=== PATIENT | male | born 1975 | race Caucasian/White ===

== ENCOUNTER 2016-06-21 15:41 | Emergency (ER) | payer MEDICARE, OTHER ==
[2016-06-21 15:45] VITALS: BP 128/77
[2016-06-21] MEDS ORDERED: DEXAMETHASONE 10 MG/ML VIAL ONE (15:58)
--- NOTE | 2016-06-21 15:59 | ED Physician Documentation ---
PD HPI BACK PAIN - Stated complaint Stated Complaint: BACK PX - Chief complaint Chief Complaint: Back Pain - History obtained from History obtained from: Patient - History of Present Illness Timing - onset: How many days ago (3) Timing - duration: Days (3) Timing - details: Gradual onset, Still present Location: Lower, Left Quality: Pain, Spasm, Sharp, Similar to prior episodes Associated symptoms: No: Fever, Weakness, Numbness, Incontinent of urine, Unable to urinate, Hematuria, Incontinent of stool Improves with: Rest, Ice, Position, Meds Worsened by: Movement, Lifting Contributing factors: Other (intimate with .) Similar symptoms before: Diagnosis (sciatica) Recently seen: Other (The patient has been in pain management and he is currently not in pain management.) - Additional information Additional information: 41 y/o male with history of sciatica has developed pain in the left distribution after a night of intimacy with his . He has been in pain management previously with his back and he has had epidural steroid injections. He relates he has been out of pain management for 3 weeks without pain medications. Review of Systems Constitutional: denies: Fever, Chills Eyes: denies: Decreased vision Ears: denies: Ear pain Nose: denies: Congestion Throat: denies: Sore throat Cardiac: denies: Chest pain / pressure Respiratory: denies: Dyspnea GI: denies: Abdominal Pain, Nausea, Vomiting, Constipation, Diarrhea : denies: Dysuria, Frequency Skin: denies: Rash Musculoskeletal: reports: Back pain. denies: Neck pain PD PAST MEDICAL HISTORY - Past Medical History Past Medical History: Yes Cardiovascular: Hypertension Respiratory: None Neuro: None Endocrine/Autoimmune: None GI: GI bleed, Ulcers : None, Kidney stones HEENT: None Psych: Post traumatic stress disorder Musculoskeletal: Osteoarthritis, Chronic back pain Derm: None - Past Surgical History Past Surgical History: Yes Ortho: Arthroscopic surgery, Other - Present Medications Home Medications: Ambulatory Orders Medication Instructions Recorded Confirmed Telmisartan/Hydrochlorothiazid 1 each PO DAILY 10/02/13 01/02/15 [Micardis Hct 80-12.5 mg Tablet] Bupropion HCl [Wellbutrin] 150 mg ORAL DAILY 01/17/14 01/02/15 Oxycodone HCl/Acetaminophen 1 each PO Q6H PRN #25 tablet 07/11/14 01/02/15 [Percocet 7.5-325 mg Tablet] Acetaminophen [Tylenol] 650 mg PO Q6H PRN #30 tab 01/02/15 Baclofen 10 mg PO BID 01/02/15 01/02/15 Gabapentin 300 mg PO DAILY 01/02/15 01/02/15 Promethazine Supp [Phenergan Supp] 25 mg [place] Q6H PRN #12 supp 01/02/15 cloNIDine [Catapres] 0.1 mg PO Q6H PRN #12 tablet 01/02/15 FLUoxetine [PROzac] 40 mg PO DAILY 06/21/16 06/21/16 Methocarbamol [Robaxin] 500 - 1,000 mg PO Q6H PRN #20 06/21/16 tablet Pregabalin [Lyrica] 75 mg PO QID 06/21/16 06/21/16 oxyCODONE/ACET 5/325 [Percocet 5 1 - 2 each PO Q4-6H PRN #20 tablet 06/21/16 mg/325 mg] - Allergies Allergies/Adverse Reactions: Allergies Allergy/AdvReac Type Severity Reaction Status Date / Time strawberry [[place]] Allergy Intermediate unk Verified 01/02/15 11:52 NSAIDS (Non-Steroidal AdvReac Unknown Verified 06/21/16 15:44 Anti-Inflamma - Social History Does the pt smoke?: No Smoking Status: Never smoker Does the pt drink ETOH?: No Does the pt have substance abuse?: No - Immunizations Immunizations are current?: Yes - POLST Patient has POLST: No PD ED PE NORMAL - Vitals Vital signs reviewed: Yes (normal ) - General General: No acute distress, Well developed/nourished - HEENT HEENT: Atraumatic, PERRL, EOMI - Respiratory Respiratory: No respiratory distress - Back Back: No CVA TTP, No spinal TTP, Other (There is some mild paraspinous muscle tenderness on the left lower and this extends into the sciatic notch. ) - Derm Derm: Normal color, Warm and dry, No rash - Extremities Extremities: No deformity, No edema - Neuro Neuro: Alert and oriented X 3, No motor deficit, No sensory deficit, Normal speech - Psych Psych: Normal mood, Normal affect Results - Vitals Vitals: Vital Signs - 24 hr 06/21/16 15:42 Temperature 36.2 C L Heart Rate 78 Respiratory 14 Rate Blood Pressure 128/77 O2 Saturation 96 Oxygen O2 Source Room air PD MEDICAL DECISION MAKING - ED course Complexity details: reviewed results, re-evaluated patient, considered differential, d/w patient ED course: 41 y/o male with acute sciatica is given decadron here in the ED and we will manage his acute pain. Departure - Departure Disposition: 01 Home, Self Care Clinical Impression: Sciatica Qualifiers: Laterality: left Qualified Code(s): M54.32 - Sciatica, left side Condition: Stable Instructions: ED Sciatica Follow-Up: Natanael Jerry ARNP [Primary Care Provider] - Prescriptions: oxyCODONE/ACET 5/325 [Percocet 5 mg/325 mg] 1 - 2 each PO Q4-6H PRN #20 tablet PRN Reason: Pain Methocarbamol [Robaxin] 500 - 1,000 mg PO Q6H PRN #20 tablet PRN Reason: Spasms
[2016-06-21] MEDS: DEXAMETHASONE 10 MG/ML VIAL PO STA (16:00)
== END 2016-06-21 16:17 | disposition home or self-care (01) ==
LOC: ED 15:41
DX: M54.32 Sciatica, left side (principal); I10 Essential (primary) hypertension; M19.90 Unspecified osteoarthritis, unspecified site; G89.29 Other chronic pain; Z87.19 Personal history of other diseases of the digestive system; Z87.11 Personal history of peptic ulcer disease; Z87.442 Personal history of urinary calculi
CPT/HCPCS: 99283

== ENCOUNTER 2016-07-09 | Emergency (ER) | payer MEDICARE, OTHER | END 2016-07-09 13:21 | disposition home or self-care (01) ==

== ENCOUNTER 2016-10-28 10:00 | Outpatient (CLI) | payer MEDICARE, OTHER ==
[2016-10-28 12:55] LABS: BASOPHILS # (AUTO) 0.1 10^3/uL (0.0-0.1); BASOPHILS % (AUTO) 0.6 %; EOSINOPHILS # (AUTO) 0.1 10^3/uL (0.0-0.7); EOSINOPHILS % (AUTO) 1.4 %; HCT - HEMATOCRIT 42.6 % (42.0-52.0); HGB - HEMOGLOBIN 14.1 g/dL (14.0-18.0); LYMPHOCYTES # (AUTO) 1.8 10^3/uL (1.5-3.5); LYMPHOCYTES % (AUTO) 17.6 %; MEAN CORPUSCULAR HEMOGLOBIN 28.2 pg (27.0-31.0); MEAN CORPUSCULAR VOLUME 85.4 fL (80.0-94.0); MEAN PLATELET VOLUME 9.9 fL (7.4-11.4); MONOCYTES # (AUTO) 0.6 10^3/uL (0.0-1.0); MONOCYTES % (AUTO) 5.8 %; NEUTROPHILS # (AUTO) 7.6 10^3/uL (1.5-6.6); NEUTROPHILS % (AUTO) 74.6 %; RED BLOOD COUNT 4.99 10^6/uL (4.70-6.10); RED CELL DISTRIBUTION WIDTH 14.4 % (12.0-15.0); UNCORRECTED WHITE BLOOD COUNT 10.2 x10^3/uL; WHITE BLOOD COUNT 10.2 x10^3/uL (4.8-10.8)
[2016-10-28 13:15] LABS: ALBUMIN/GLOBULIN RATIO 1.8 (1.0-2.2); BILIRUBIN,TOTAL 0.6 mg/dL (0.2-1.0); CALCIUM 9.4 mg/dL (8.5-10.3); CREATININE 1.1 mg/dL (0.6-1.2); POTASSIUM 4.1 mmol/L (3.5-5.0); TOTAL PROTEIN 7.1 g/dL (6.7-8.2)
== END 2016-10-28 10:01 | disposition home or self-care (01) ==
LOC: LAB.WCP 10:00
PROVIDERS: ATTEND Physician Assistant Medical
DX: Z51.81 Encounter for therapeutic drug level monitoring (principal); Z71.9 Counseling, unspecified; Z79.899 Other long term (current) drug therapy
CPT/HCPCS: 36415; 80053; 85025; 87640

== ENCOUNTER 2016-11-03 14:59 | Emergency (ER) | payer MEDICARE, OTHER ==
[2016-11-03] MEDS ORDERED: DEXAMETHASONE 10 MG/ML VIAL PO STA (16:42)
[2016-11-03] MEDS ORDERED: KETOROLAC 60 MG/2 ML VIAL IM STA (16:42)
--- NOTE | 2016-11-03 16:44 | ED Physician Documentation ---
PD HPI BACK PAIN - Stated complaint Stated Complaint: SCIATICA - Chief complaint Chief Complaint: Back Pain - History obtained from History obtained from: Patient - History of Present Illness Timing - onset: Today Timing - duration: Hours Timing - details: Abrupt onset, Still present Location: Lower, Right Quality: Pain, Spasm, Sharp, Similar to prior episodes Associated symptoms: No: Fever, Weakness, Numbness, Incontinent of urine, Unable to urinate, Hematuria, Incontinent of stool Improves with: Rest, Position, Meds Worsened by: Movement Contributing factors: Other (The patient had an active 3 days and then woke up today with severe pain on the right) Similar symptoms before: Diagnosis (sciatica) Recently seen: Not recently seen - Additional information Additional information: 41 y/o male on pain management for chronic back pain has developed acute sciatica on the right side after several active days. Review of Systems Constitutional: denies: Fever Eyes: denies: Decreased vision Ears: denies: Ear pain Nose: denies: Congestion Respiratory: denies: Cough GI: denies: Abdominal Pain, Nausea, Vomiting, Constipation, Diarrhea : denies: Dysuria, Frequency Musculoskeletal: reports: Back pain, Extremity pain Neurologic: denies: Generalized weakness, Focal weakness, Numbness PD PAST MEDICAL HISTORY - Past Medical History Cardiovascular: Hypertension Respiratory: None Neuro: None Endocrine/Autoimmune: None GI: GI bleed, Ulcers : None, Kidney stones HEENT: None Psych: Post traumatic stress disorder Musculoskeletal: Osteoarthritis, Chronic back pain Derm: None - Past Surgical History Past Surgical History: Yes Ortho: Arthroscopic surgery, Other - Present Medications Home Medications: Ambulatory Orders Medication Instructions Recorded Confirmed Methocarbamol [Robaxin] 500 - 1,000 mg PO Q6H PRN #20 06/21/16 11/03/16 tablet Hydroxyzine Pamoate 1 - 2 tab PO Q6H PRN #20 capsule 07/09/16 11/03/16 DULoxetine [Cymbalta] 40 mg PO DAILY 11/03/16 11/03/16 Lamotrigine [Lamictal] 200 mg PO DAILY 11/03/16 11/03/16 Telmisartan/Hydrochlorothiazid 1 tab PO DAILY 11/03/16 11/03/16 [Micardis Hct 80-25 mg Tablet] oxyCODONE ER [OxyCONTIN] 10 mg PO DAILY 11/03/16 11/03/16 - Allergies Allergies/Adverse Reactions: Allergies Allergy/AdvReac Type Severity Reaction Status Date / Time strawberry [[place]] Allergy Intermediate unk Verified 11/03/16 16:09 NSAIDS (Non-Steroidal AdvReac Unknown Verified 11/03/16 16:09 Anti-Inflamma - Social History Does the pt smoke?: No Smoking Status: Never smoker Does the pt drink ETOH?: No Does the pt have substance abuse?: No - Immunizations Immunizations are current?: Yes - POLST Patient has POLST: No PD ED PE NORMAL - Vitals Vital signs reviewed: Yes (tachy and hypertensive) - General General: Alert and oriented X 3, Well developed/nourished, Other (patient is splinted in a chair favoring his right side and he appears uncomfortable. ) - HEENT HEENT: Atraumatic, PERRL - Respiratory Respiratory: No respiratory distress - Back Back: No CVA TTP, Other (there is marked paraspinous muscle tenderness to the right lower lumbar area with radiatio into the buttocks. ) - Derm Derm: Normal color, Warm and dry, No rash - Extremities Extremities: No deformity, No edema - Neuro Neuro: Alert and oriented X 3, No motor deficit, No sensory deficit, Normal speech - Psych Psych: Normal mood, Normal affect Results - Vitals Vitals: Vital Signs - 24 hr 11/03/16 15:01 Temperature 36.5 C Heart Rate 105 H Respiratory 20 Rate Blood Pressure 141/94 H O2 Saturation 99 Oxygen O2 Source Room air PD MEDICAL DECISION MAKING - ED course Complexity details: reviewed old records, considered differential, d/w patient ED course: 41 y/o male with acute right sided sciatica appears uncomfortable. He is treated in the ED with toradal and decadron and he has some pain medication to take at home tonight but he is only allow one 10mg pill per night and he will talk to his prescriber tomorrow about additional doses as needed. He looks like he could use some pain medication. Departure - Departure Disposition: 01 Home, Self Care Clinical Impression: Sciatica Qualifiers: Laterality: right Qualified Code(s): M54.31 - Sciatica, right side Condition: Stable Instructions: ED Sciatica Follow-Up: Madeline Hull PA-C [Primary Care Provider] -
[2016-11-03] MEDS ORDERED: KETOROLAC 60 MG/2 ML VIAL ONE (17:00)
[2016-11-03] MEDS ORDERED: DEXAMETHASONE 10 MG/ML VIAL ONE (17:00)
[2016-11-03 17:18] VITALS: BP 128/93
== END 2016-11-03 17:15 | disposition home or self-care (01) ==
LOC: ED 14:59
DX: M54.31 Sciatica, right side (principal); Z79.891 Long term (current) use of opiate analgesic; F43.10 Post-traumatic stress disorder, unspecified
CPT/HCPCS: 96372; 99283

== ENCOUNTER 2016-11-19 10:54 | Outpatient (CLI) | payer MEDICARE, OTHER | END 2016-11-19 10:55 | disposition home or self-care (01) | LOC: DI 10:54 | PROVIDERS: ATTEND Physician Assistant Medical | DX: R00.0 Tachycardia, unspecified (principal); I51.7 Cardiomegaly | CPT/HCPCS: 93306 ==

== ENCOUNTER 2017-01-05 11:52 | Emergency (ER) | payer MEDICARE, OTHER ==
[2017-01-05 11:59] VITALS: BP 139/95
--- NOTE | 2017-01-05 12:34 | ED Physician Documentation ---
PD HPI BACK PAIN - Stated complaint Stated Complaint: BACK PX - Chief complaint Chief Complaint: Back Pain - History obtained from History obtained from: Patient - History of Present Illness Timing - onset: Other (He has chronic low back pain with recent MRI showing L5- S1 central disc herniation with effacement of both neuroforaminal openings on either side and he has pain that radiates down the left leg without saddle anesthesia. He admits he recently was discharged from his doctor's practice, this is corroborated by the [employer] showing his last prescription filled was early November.) Review of Systems Constitutional: denies: Fever, Chills Cardiac: denies: Chest pain / pressure, Palpitations Respiratory: denies: Dyspnea, Cough GI: denies: Abdominal Pain PD PAST MEDICAL HISTORY - Past Medical History Cardiovascular: Hypertension Respiratory: None Neuro: None Endocrine/Autoimmune: None GI: GI bleed, Ulcers : None, Kidney stones HEENT: None Psych: Post traumatic stress disorder Musculoskeletal: Osteoarthritis, Chronic back pain Derm: None - Past Surgical History Past Surgical History: Yes Ortho: Arthroscopic surgery, Other - Present Medications Home Medications: Ambulatory Orders Medication Instructions Recorded Confirmed Methocarbamol [Robaxin] 750 mg PO Q6H PRN #20 tablet 01/05/17 Oxycodone HCl/Acetaminophen 1 - 2 tab PO Q4H PRN #15 tablet 01/05/17 [Percocet 5-325 mg Tablet] predniSONE [Deltasone] 20 mg PO [id number] #21 tab 01/05/17 - Allergies Allergies/Adverse Reactions: Allergies Allergy/AdvReac Type Severity Reaction Status Date / Time strawberry [[place]] Allergy Intermediate unk Verified 11/03/16 16:09 hydrocodone Allergy Unknown Verified 01/05/17 11:59 NSAIDS (Non-Steroidal AdvReac Unknown Verified 11/03/16 16:09 Anti-Inflamma - Social History Does the pt smoke?: No Smoking Status: Never smoker Does the pt drink ETOH?: No Does the pt have substance abuse?: No - Immunizations Immunizations are current?: Yes - POLST Patient has POLST: No PD ED PE NORMAL - Vitals Vital signs reviewed: Yes - General General: Alert and oriented X 3, No acute distress - Back Back: No CVA TTP, No spinal TTP - Extremities Extremities: Other (Mildly diminished sensation on the left side focused over the anterior left thigh but symmetric patellar and Babinski reflexes and normal strength throughout.) - Neuro Neuro: Alert and oriented X 3, Normal speech - Psych Psych: Normal mood, Normal affect Results - Vitals Vitals: Vital Signs - 24 hr 01/05/17 11:57 Temperature 35.9 C L Heart Rate 105 H Respiratory 18 Rate Blood Pressure 139/95 H O2 Saturation 100 Oxygen O2 Source Room air PD MEDICAL DECISION MAKING - ED course ED course: This patient has seemingly uncomplicated musculoskeletal back pain. The patient has no "red flags." Specifically denies IV drug use, fevers, incontinence, saddle anesthesia. Spinal epidural abscess was considered, given that the patient has no fever, is not diabetic, has no spinal tenderness, does not use IV drugs, and has no bilateral neurologic symptoms, the diagnosis of spinal epidural abscess is considered exceedingly unlikely. The [place] prescription monitoring program was queried with regard to this patient. No concerning findings were found. Departure - Departure Disposition: Home, Self Care Clinical Impression: Back pain Qualifiers: Back pain location: low back pain Chronicity: chronic Back pain laterality: bilateral Sciatica presence: with sciatica Sciatica laterality: sciatica of left side Qualified Code(s): M54.42 - Lumbago with sciatica, left side Condition: Good Record reviewed to determine appropriate education?: Yes Instructions: ED Chronic Pain Management, ED Neck Back Pain General Prescriptions: predniSONE [Deltasone] 20 mg PO [id number] #21 tab Oxycodone HCl/Acetaminophen [Percocet 5-325 mg Tablet] 1 - 2 tab PO Q4H PRN #15 tablet PRN Reason: Pain Methocarbamol [Robaxin] 750 mg PO Q6H PRN #20 tablet PRN Reason: Spasms Comments: Call your doctor to arrange a follow-up appointment, make the next available appointment. In the interim, return anytime if worse or if new symptoms develop. Do not drink or drive while taking narcotic pain medication. Note that many narcotic pain relievers also contain Tylenol/acetaminophen. Please ensure that your total dose of acetaminophen from all sources does not exceed 3 g (3000 mg) per day. You may get constipated while on this medication. Take a stool softener such as Colace twice a day while you are on it. Also add an [id number] laxative such as senna or MiraLAX on any day that you do not have a bowel movement. If you received a narcotic pain medication or sedative while in the emergency department, do not drive for the next 24 hours. Your blood pressure was elevated today on check into the emergency department. This does not mean that you have hypertension, it is a common phenomenon to come to the emergency department and have elevated blood pressure. I recommend that she see her primary care physician within the week to have it rechecked when you are feeling better.
== END 2017-01-05 12:39 | disposition home or self-care (01) ==
LOC: ED 11:52
DX: M54.42 Lumbago with sciatica, left side (principal); G89.29 Other chronic pain
CPT/HCPCS: 99282; 99283

== ENCOUNTER 2017-01-07 15:04 | Emergency (ER) | payer MEDICARE, OTHER ==
[2017-01-07 15:20] VITALS: BP 133/85
[2017-01-07] MEDS ORDERED: LIDOCAINE PATCH 5% TOP STA (15:34)
[2017-01-07] MEDS ORDERED: DEXAMETHASONE 10 MG/ML VIAL PO STA (15:34)
[2017-01-07] MEDS ORDERED: DEXAMETHASONE 10 MG/ML VIAL ONE (15:42)
[2017-01-07] MEDS ORDERED: LIDOCAINE PATCH 5% TOP ONE (15:42)
--- NOTE | 2017-01-07 15:52 | ED Physician Documentation ---
PD HPI BACK PAIN - Stated complaint Stated Complaint: BACK PX - Chief complaint Chief Complaint: Back Pain - Additional information Additional information: hx from pt 41 male chronic back issues recent MRI showed L5S1 disk dehydration and herniation with nerve impingement his PMD is on leave until 01/15 seen in ER few days ago and rx percocet, prednisone and mm relaxant pain is still severe with rad down lateral left leg and numbness to left lateral foot no saddle anesthesia no urinary or fecal incont soem rad to lateral left side but no abd pain no fever, denies IVDA dental work etc Review of Systems Constitutional: denies: Fever Cardiac: denies: Chest pain / pressure GI: denies: Abdominal Pain : denies: Incontinent Musculoskeletal: reports: Back pain Neurologic: reports: Focal weakness (lateral toes L foot), Numbness (lateral toes L foot) PD PAST MEDICAL HISTORY - Past Medical History Past Medical History: Yes Cardiovascular: Hypertension Respiratory: None Neuro: None Endocrine/Autoimmune: None GI: GI bleed, Ulcers : None, Kidney stones HEENT: None Psych: Post traumatic stress disorder Musculoskeletal: Osteoarthritis, Chronic back pain Derm: None - Past Surgical History Past Surgical History: Yes Ortho: Arthroscopic surgery, Other - Present Medications Home Medications: Ambulatory Orders Medication Instructions Recorded Confirmed Methocarbamol [Robaxin] 750 mg PO Q6H PRN #20 tablet 01/05/17 Oxycodone HCl/Acetaminophen 1 - 2 tab PO Q4H PRN #15 tablet 01/05/17 [Percocet 5-325 mg Tablet] predniSONE [Deltasone] 20 mg PO [id number] #21 tab 01/05/17 Lidocaine Patch 5% [Lidoderm Patch] 1 each TOP DAILY PRN #10 patch 01/07/17 - Allergies Allergies/Adverse Reactions: Allergies Allergy/AdvReac Type Severity Reaction Status Date / Time strawberry [[place]] Allergy Intermediate unk Verified 11/03/16 16:09 hydrocodone Allergy Unknown Verified 01/05/17 11:59 NSAIDS (Non-Steroidal AdvReac Unknown Verified 11/03/16 16:09 Anti-Inflamma - Social History Does the pt smoke?: No Smoking Status: Never smoker Does the pt drink ETOH?: No Does the pt have substance abuse?: No - Immunizations Immunizations are current?: Yes - POLST Patient has POLST: No PD ED PE NORMAL - Vitals Vital signs reviewed: Yes - Cardiac Cardiac: RRR - Respiratory Respiratory: No respiratory distress - Abdomen Abdomen: Soft, Non tender, Other (no pulsatile mass) - Back Back: Other (left low lumbar ST TTP, no focal spine rendess swelling TTP) - Neuro Neuro: Other (hip flex knee ect foot dorsi plantar and great toe ext 5/5, 4th 5th toe ext slightly weak, no ankle clonus, + SLR (leg hurt even without), diff to postiron pt and relax enough to test patellar DTR) Results - Vitals Vitals: Vital Signs - 24 hr 01/07/17 15:05 Temperature 36.5 C Heart Rate 83 Respiratory 14 Rate Blood Pressure 133/85 H O2 Saturation 100 Oxygen O2 Source Room air PD MEDICAL DECISION MAKING - ED course ED course: will add dose of decdron and try lido patches, pt still has some percocet left Departure - Departure Disposition: 01 Home, Self Care Clinical Impression: Back pain Qualifiers: Back pain location: low back pain Chronicity: acute Back pain laterality: left Sciatica presence: with sciatica Sciatica laterality: sciatica of left side Qualified Code(s): M54.42 - Lumbago with sciatica, left side Condition: Good Instructions: ED Sciatica, ED Back Care Tips Follow-Up: Madeline Hull PA-C [Primary Care Provider] - Prescriptions: Lidocaine Patch 5% [Lidoderm Patch] 1 each TOP DAILY PRN #10 patch PRN Reason: Pain Comments: Try the lidocaine patches Continue your other medications as previously prescribed. Follow up with your PMD Jan 15 as scheduled And please have your PMD recheck your blood pressure - it was high today Forms: Activity restrictions
== END 2017-01-07 16:12 | disposition home or self-care (01) ==
LOC: ED 15:04
DX: M54.42 Lumbago with sciatica, left side (principal); I10 Essential (primary) hypertension; G89.29 Other chronic pain
CPT/HCPCS: 99283; A9270

== ENCOUNTER 2017-01-15 15:26 | Outpatient (CLI) | payer MEDICARE, OTHER | END 2017-01-15 15:27 | LOC: LAB.R 15:26 | PROVIDERS: ATTEND Physician Assistant Medical | DX: Z01.818 Encounter for other preprocedural examination (principal); M16.0 Bilateral primary osteoarthritis of hip | CPT/HCPCS: 87640 ==

== ENCOUNTER 2017-03-24 15:02 | Outpatient (CLI) | payer MEDICARE, OTHER ==
[2017-03-24 12:31] LABS: BASOPHILS # (AUTO) 0.1 10^3/uL (0.0-0.1); BASOPHILS % (AUTO) 0.8 %; EOSINOPHILS # (AUTO) 0.1 10^3/uL (0.0-0.7); EOSINOPHILS % (AUTO) 1.9 %; HCT - HEMATOCRIT 43.7 % (42.0-52.0); HGB - HEMOGLOBIN 14.6 g/dL (14.0-18.0); LYMPHOCYTES # (AUTO) 2.2 10^3/uL (1.5-3.5); LYMPHOCYTES % (AUTO) 30.6 %; MEAN CORPUSCULAR HEMOGLOBIN 28.2 pg (27.0-31.0); MEAN CORPUSCULAR HGB CONC 33.4 g/dL (32.0-36.0); MEAN CORPUSCULAR VOLUME 84.3 fL (80.0-94.0); MEAN PLATELET VOLUME 9.5 fL (7.4-11.4); MONOCYTES # (AUTO) 0.5 10^3/uL (0.0-1.0); MONOCYTES % (AUTO) 7.6 %; NEUTROPHILS # (AUTO) 4.2 10^3/uL (1.5-6.6); NEUTROPHILS % (AUTO) 59.1 %; RED BLOOD COUNT 5.18 10^6/uL (4.70-6.10); RED CELL DISTRIBUTION WIDTH 14.3 % (12.0-15.0); UNCORRECTED WHITE BLOOD COUNT 7.1 x10^3/uL; WHITE BLOOD COUNT 7.1 x10^3/uL (4.8-10.8)
[2017-03-24 12:39] LABS: ALBUMIN/GLOBULIN RATIO 1.7 (1.0-2.2); BILIRUBIN,TOTAL 0.6 mg/dL (0.2-1.0); CALCIUM 9.1 mg/dL (8.5-10.3); POTASSIUM 3.8 mmol/L (3.5-5.0); TOTAL PROTEIN 7.2 g/dL (6.7-8.2)
== END 2017-03-24 15:03 | disposition home or self-care (01) ==
LOC: LAB.WCP 15:02
PROVIDERS: ATTEND Physician Assistant Medical
DX: R10.13 Epigastric pain (principal); R10.11 Right upper quadrant pain; Z51.81 Encounter for therapeutic drug level monitoring; Z79.899 Other long term (current) drug therapy
CPT/HCPCS: 36415; 80053; 82150; 83690; 85025

== ENCOUNTER 2017-07-09 23:31 | Outpatient (CLI) | payer MEDICARE, OTHER ==
[2017-07-09 19:12] LABS: BASOPHILS # (AUTO) 0.1 10^3/uL (0.0-0.1); BASOPHILS % (AUTO) 1.2 %; EOSINOPHILS # (AUTO) 0.2 10^3/uL (0.0-0.7); EOSINOPHILS % (AUTO) 2.2 %; HGB - HEMOGLOBIN 15.1 g/dL (14.0-18.0); LYMPHOCYTES # (AUTO) 1.7 10^3/uL (1.5-3.5); LYMPHOCYTES % (AUTO) 25.4 %; MEAN CORPUSCULAR HEMOGLOBIN 28.8 pg (27.0-31.0); MEAN CORPUSCULAR VOLUME 87.4 fL (80.0-94.0); MONOCYTES # (AUTO) 0.6 10^3/uL (0.0-1.0); MONOCYTES % (AUTO) 8.7 %; NEUTROPHILS # (AUTO) 4.2 10^3/uL (1.5-6.6); NEUTROPHILS % (AUTO) 62.5 %; PLT - PLATELET COUNT 261 10^3/uL (130-450); RED BLOOD COUNT 5.24 10^6/uL (4.70-6.10); RED CELL DISTRIBUTION WIDTH 13.6 % (12.0-15.0); WHITE BLOOD COUNT 6.8 x10^3/uL (4.8-10.8)
[2017-07-09 19:44] LABS: ALBUMIN 4.7 g/dL (3.2-5.5); ALBUMIN/GLOBULIN RATIO 1.8 (1.0-2.2); BILIRUBIN,TOTAL 0.5 mg/dL (0.2-1.0); CRP - C-REACTIVE PROTEIN 1.1 mg/dL (0-1.0); TOTAL PROTEIN 7.3 g/dL (6.7-8.2)
[2017-07-10 10:54] LABS: HEPATITIS C ANTIBODY NON-REACTIVE (NON-REACTIVE)
[2017-07-10 11:27] LABS: HEPATITIS B SURFACE ANTIGEN NON-REACTIVE (NON-REACTIVE)
[2017-07-10 11:28] LABS: HEPATITIS B CORE AB TOTAL NON-REACTIVE (NON-REACTIVE)
[2017-07-14 13:10] LABS: LAMOTRIGINE <0.5 mcg/mL (4.0-18.0)
== END 2017-07-09 23:32 | disposition home or self-care (01) ==
LOC: LAB.WCP 23:31
PROVIDERS: ATTEND Physician Assistant Medical
DX: M25.50 Pain in unspecified joint (principal); F31.9 Bipolar disorder, unspecified; Z51.81 Encounter for therapeutic drug level monitoring; Z79.899 Other long term (current) drug therapy; Z71.9 Counseling, unspecified
CPT/HCPCS: 36415; 80053; 80175; 84443; 85025; 85651; 86140; 86317; 86704; 86803; 87340

== ENCOUNTER 2017-07-22 07:50 | Outpatient (CLI) | payer MEDICARE, OTHER | END 2017-07-22 07:51 | disposition home or self-care (01) | LOC: LAB.WCP 07:50 | PROVIDERS: ATTEND Physician Assistant Medical | DX: M25.50 Pain in unspecified joint (principal); R53.83 Other fatigue; Z51.81 Encounter for therapeutic drug level monitoring; Z79.899 Other long term (current) drug therapy | CPT/HCPCS: 36415; 82306; 84403; 84443 ==

== ENCOUNTER 2017-07-23 07:41 | Outpatient (CLI) | payer MEDICARE, OTHER | END 2017-07-23 07:42 | disposition home or self-care (01) | LOC: LAB.WCP 07:41 | PROVIDERS: ATTEND Physician Assistant Medical | DX: E29.1 Testicular hypofunction (principal); R53.83 Other fatigue | CPT/HCPCS: 36415; 84403 ==

== ENCOUNTER 2017-07-24 08:00 | Outpatient (CLI) | payer MEDICARE, OTHER ==
[2017-07-24 13:43] LABS: HGB - HEMOGLOBIN 15.1 g/dL (14.0-18.0); MEAN CORPUSCULAR HEMOGLOBIN 28.6 pg (27.0-31.0); MEAN CORPUSCULAR HGB CONC 33.6 g/dL (32.0-36.0); MEAN CORPUSCULAR VOLUME 85.2 fL (80.0-94.0); MEAN PLATELET VOLUME 9.4 fL (7.4-11.4); RED BLOOD COUNT 5.28 10^6/uL (4.70-6.10); RED CELL DISTRIBUTION WIDTH 13.7 % (12.0-15.0); WHITE BLOOD COUNT 6.2 x10^3/uL (4.8-10.8)
[2017-07-24 14:14] LABS: CRP - C-REACTIVE PROTEIN < 1.0 mg/dL (0-1.0); URIC ACID 6.2 mg/dL (2.6-7.2)
[2017-07-24 14:23] LABS: RHEUMATOID FACTOR NEGATIVE (Negative)
[2017-07-26 19:01] LABS: 18 KD (IGG) BAND NON-REACTIVE; 23 KD (IGG) BAND NON-REACTIVE; 23 KD (IGM) BLOT NON-REACTIVE; 28 KD (IGG) BAND NON-REACTIVE; 30 KD (IGG) BAND NON-REACTIVE; 39 KD (IGG) BAND NON-REACTIVE; 39 KD (IGM) BLOT NON-REACTIVE; 41 KD (IGG) BAND REACTIVE; 41 KD (IGM) BLOT REACTIVE; 45 KD (IGG) BAND NON-REACTIVE; 58 KD (IGG) BAND NON-REACTIVE; 66 KD (IGG) BAND NON-REACTIVE; 93 KD (IGG) BAND NON-REACTIVE
[2017-07-27 16:27] LABS: ANA SCREEN NEGATIVE (NEGATIVE)
[2017-07-28 21:43] LABS: CYCLIC CITRULL PEPTIDE CCP IGG <16 UNITS
== END 2017-07-24 08:01 | disposition home or self-care (01) ==
LOC: LAB.WCP 08:00
PROVIDERS: ATTEND Physician Assistant Medical
DX: M25.50 Pain in unspecified joint (principal)
CPT/HCPCS: 36415; 84550; 85651; 86038; 86140; 86200; 86430; 86617

== ENCOUNTER 2017-07-28 10:40 | Emergency (ER) | payer MEDICARE, OTHER ==
[2017-07-28] MEDS ORDERED: DEXAMETHASONE 10 MG/ML VIAL PO STA (14:05)
--- NOTE | 2017-07-28 14:08 | ED Physician Documentation ---
PD HPI BACK PAIN - Stated complaint Stated Complaint: BACK PX - Chief complaint Chief Complaint: Back Pain - History obtained from History obtained from: Patient - History of Present Illness Timing - onset: How many days ago (2) Timing - duration: Days (2) Timing - details: Gradual onset, Still present Location: Lower, Left Quality: Pain, Spasm, Sharp, Similar to prior episodes Associated symptoms: Numbness. No: Fever, Weakness, Incontinent of urine, Unable to urinate, Hematuria, Incontinent of stool Improves with: Rest, Ice, Position, Meds Worsened by: Movement Contributing factors: Other (lifted a patient off of the ground) Similar symptoms before: Diagnosis (sciatica) Recently seen: Not recently seen - Additional information Additional information: 42-year-old male with lumbar disc disease bent over to help someone up off of the ground 2 days ago and at that time he had slight pain in his back he was able to nurse that through and over the last 2 days his pain has become intolerable and he has pain radiating down the left leg. He has had this happen to him a number of times he took some methocarbamol did not help much and he is here now for treatment. He has responded previously to dexamethasone and he has had improvement with epidural steroid injection. He is not currently on pain management. Review of Systems Constitutional: denies: Fever Eyes: denies: Decreased vision Ears: denies: Ear pain Nose: denies: Congestion Throat: denies: Sore throat Respiratory: denies: Cough GI: denies: Vomiting : denies: Dysuria, Frequency Skin: denies: Rash Musculoskeletal: reports: Back pain, Extremity pain Neurologic: reports: Numbness. denies: Generalized weakness, Focal weakness PD PAST MEDICAL HISTORY - Past Medical History Past Medical History: Yes Cardiovascular: Hypertension Respiratory: None Neuro: None Endocrine/Autoimmune: None GI: GI bleed, Ulcers : None, Kidney stones HEENT: None Psych: Post traumatic stress disorder Musculoskeletal: Osteoarthritis, Fibromyalgia, Chronic back pain Derm: None - Past Surgical History Past Surgical History: Yes Ortho: Arthroscopic surgery, Other - Present Medications Home Medications: Ambulatory Orders Medication Instructions Recorded Confirmed Methocarbamol [Robaxin] 750 mg PO Q6H PRN #20 tablet 01/05/17 Oxycodone HCl/Acetaminophen 1 - 2 tab PO Q4H PRN #15 tablet 01/05/17 [Percocet 5-325 mg Tablet] predniSONE [Deltasone] 20 mg PO [id number] #21 tab 01/05/17 Lidocaine Patch 5% [Lidoderm Patch] 1 each TOP DAILY PRN #10 patch 01/07/17 Cyclobenzaprine [Flexeril] 10 mg PO TID PRN #20 tablet 07/28/17 oxyCODONE/ACET 5/325 [Percocet 5 1 each PO Q4-6H #12 tablet 07/28/17 mg/325 mg] - Allergies Allergies/Adverse Reactions: Allergies Allergy/AdvReac Type Severity Reaction Status Date / Time strawberry [[place]] Allergy Intermediate unk Verified 11/03/16 16:09 hydrocodone Allergy Unknown Verified 01/05/17 11:59 NSAIDS (Non-Steroidal AdvReac Unknown Verified 11/03/16 16:09 Anti-Inflamma - Social History Does the pt smoke?: No Smoking Status: Never smoker Does the pt drink ETOH?: No Does the pt have substance abuse?: No - Immunizations Immunizations are current?: Yes - POLST Patient has POLST: No PD ED PE NORMAL - Vitals Vital signs reviewed: Yes (hypertensive and tachycardic) - General General: Alert and oriented X 3, Well developed/nourished, Other (Patient appears to be in pain with ip technology transactions attorney tone and flattened affect) - HEENT HEENT: Atraumatic, PERRL - Respiratory Respiratory: No respiratory distress - Back Back: No CVA TTP, No spinal TTP, Other (There is some tenderness to the paraspinous muscles especially in the left lower lumbar area that extends into the sciatic notch.) - Derm Derm: Normal color, Warm and dry, No rash - Extremities Extremities: No deformity, No edema - Neuro Neuro: Alert and oriented X 3, No motor deficit, Normal speech Eye Opening: Spontaneous Motor: Obeys Commands Verbal: Oriented GCS Score: 15 - Psych Psych: Normal mood Results - Vitals Vitals: Vital Signs - 24 hr 07/28/17 07/28/17 07/28/17 10:49 12:55 14:13 Temperature 36.7 C 36.8 C Heart Rate 108 H 100 83 Respiratory 18 20 18 Rate Blood Pressure 150/100 H 124/87 H 138/94 H O2 Saturation 98 98 100 Oxygen O2 Source Room air PD MEDICAL DECISION MAKING - ED course Complexity details: considered differential, d/w patient ED course: 42-year-old male with an exacerbation of sciatica is given dexamethasone 10 mg orally here in the emergency department and we will provide him a small amount of oxycodone. Departure - Departure Disposition: 01 Home, Self Care Clinical Impression: Sciatic pain Qualifiers: Laterality: left Qualified Code(s): M54.32 - Sciatica, left side Condition: Stable Instructions: ED Sciatica Follow-Up: Madeline Hull PA-C [Primary Care Provider] - Prescriptions: Cyclobenzaprine [Flexeril] 10 mg PO TID PRN #20 tablet PRN Reason: Spasms oxyCODONE/ACET 5/325 [Percocet 5 mg/325 mg] 1 each PO Q4-6H #12 tablet Discharge Date/Time: 07/28/17 14:17
[2017-07-28 14:14] VITALS: BP 138/94
[2017-07-28] MEDS ORDERED: CHERRY SYRUP 10 ML UDC PO ONE (14:18)
== END 2017-07-28 14:17 | disposition home or self-care (01) ==
LOC: ED 10:40
DX: M54.32 Sciatica, left side (principal); M51.36 Other intervertebral disc degeneration, lumbar region; I10 Essential (primary) hypertension
CPT/HCPCS: 99283; A9270

== ENCOUNTER 2017-08-03 10:00 | Outpatient (CLI) | payer MEDICARE, OTHER ==
[2017-08-03 14:26] LABS: PROLACTIN 4.01 ng/mL
[2017-08-03 14:50] LABS: LUTEINIZING HORMONE 3.68 mIU/mL
== END 2017-08-03 10:01 | disposition home or self-care (01) ==
LOC: LAB.WCP 10:00
PROVIDERS: ATTEND Physician Assistant Medical
DX: E29.1 Testicular hypofunction (principal); Z12.5 Encounter for screening for malignant neoplasm of prostate; Z79.899 Other long term (current) drug therapy
CPT/HCPCS: 36415; 83002; 84146; G0103; 84153

== ENCOUNTER 2017-08-14 11:19 | Emergency (ER) | payer MEDICARE, OTHER ==
[2017-08-14 11:26] VITALS: BP 149/92
== END 2017-08-14 12:40 | disposition left against medical advice (07) ==
LOC: ED 11:19
DX: Z53.21 Procedure and treatment not carried out due to patient leaving prior to being seen by health care provider (principal)

== ENCOUNTER 2017-09-10 18:57 | Emergency (ER) | payer MEDICARE, OTHER ==
[2017-09-10 19:08] VITALS: BP 147/100
--- NOTE | 2017-09-10 19:36 | ED Physician Documentation ---
History of Present Illness - Stated complaint Stated Complaint: LEG PX - Chief complaint Chief Complaint: Ext Problem - History obtained from History obtained from: Patient - History of Present Illness Timing: Other (He has been having ongoing problems with his back, had an MRI a few weeks ago showing a left L5/S1 nerve root problem without evidence of central stenosis or spinal cord issue. Couple of days ago he had increasing pain of the left sciatic area and buttock radiating down in the left leg with numbness along the outer side of the left leg but no saddle anesthesia or incontinence or fevers. He has been taking Tylenol 3 as well as a gabapentin and a benzodiazepine without relief.) Review of Systems Constitutional: denies: Fever, Chills GI: denies: Abdominal Pain, Nausea, Vomiting : reports: Reviewed and negative PD PAST MEDICAL HISTORY - Past Medical History Past Medical History: Yes Cardiovascular: Hypertension Respiratory: None Neuro: None Endocrine/Autoimmune: None GI: GI bleed, Ulcers : None, Kidney stones HEENT: None Psych: Post traumatic stress disorder Musculoskeletal: Osteoarthritis, Fibromyalgia, Chronic back pain Derm: None - Past Surgical History Past Surgical History: Yes Ortho: Arthroscopic surgery, Other - Present Medications Home Medications: Ambulatory Orders Medication Instructions Recorded Confirmed Cyclobenzaprine [Flexeril] 10 mg PO TID PRN #20 tablet 09/10/17 Lidocaine Patch 5% [Lidoderm Patch] 1 each TOP DAILY #10 patch 09/10/17 Oxycodone HCl/Acetaminophen 1 - 2 tab PO Q4H PRN #15 tablet 09/10/17 [Percocet 5-325 mg Tablet] - Allergies Allergies/Adverse Reactions: Allergies Allergy/AdvReac Type Severity Reaction Status Date / Time strawberry [[place]] Allergy Intermediate unk Verified 09/10/17 19:25 hydrocodone Allergy Unknown Verified 09/10/17 19:25 NSAIDS (Non-Steroidal AdvReac Unknown Verified 09/10/17 19:25 Anti-Inflamma - Social History Does the pt smoke?: No Smoking Status: Never smoker Does the pt drink ETOH?: No Does the pt have substance abuse?: No - Immunizations Immunizations are current?: Yes - POLST Patient has POLST: No PD ED PE NORMAL - Vitals Vital signs reviewed: Yes - General General: Alert and oriented X 3, Other (He looks like he is in pain, he is standing with his weight centered on his right leg and the left leg slightly flexed at the hip knee and ankle. I am unable to check reflexes but his legs are nontender, he does have diminished sensation over the outer left thigh. There is no spinal cord tenderness.) - Neuro Neuro: Alert and oriented X 3, Normal speech - Psych Psych: Normal mood, Normal affect Results - Vitals Vitals: Vital Signs - 24 hr 09/10/17 19:05 Temperature 36.1 C L Heart Rate 101 H Respiratory 19 Rate Blood Pressure 147/100 H O2 Saturation 98 Oxygen O2 Source Room air PD MEDICAL DECISION MAKING - ED course ED course: He looks like he is in severe pain and I offered an injection, however he is allergic to NSAIDs and he does not have a ride so we opted for oral medications only. Departure - Departure Disposition: 01 Home, Self Care Clinical Impression: Sciatica Qualifiers: Laterality: left Qualified Code(s): M54.32 - Sciatica, left side Condition: Good Record reviewed to determine appropriate education?: Yes Instructions: ED Sciatica Prescriptions: Cyclobenzaprine [Flexeril] 10 mg PO TID PRN #20 tablet PRN Reason: Pain Lidocaine Patch 5% [Lidoderm Patch] 1 each TOP DAILY #10 patch Oxycodone HCl/Acetaminophen [Percocet 5-325 mg Tablet] 1 - 2 tab PO Q4H PRN #15 tablet PRN Reason: Pain Comments: Call your doctor to arrange a follow-up appointment, make the next available appointment. In the interim, return anytime if worse or if new symptoms develop. Your blood pressure was elevated today on check into the emergency department. This does not mean that you have hypertension, it is a common phenomenon to come to the emergency department and have elevated blood pressure. I recommend that you see your primary care physician within the week to have it rechecked when you are feeling better. Do not drink or drive while taking narcotic pain medication. Note that many narcotic pain relievers also contain Tylenol/acetaminophen. Please ensure that your total dose of acetaminophen from all sources does not exceed 3 g (3000 mg) per day. You may get constipated while on this medication. Take a stool softener such as Colace twice a day while you are on it. Also add an [id number] laxative such as senna or MiraLAX on any day that you do not have a bowel movement. If you received a narcotic pain medication or sedative while in the emergency department, do not drive for the next 24 hours.
== END 2017-09-10 19:44 | disposition home or self-care (01) ==
LOC: ED 18:57
DX: M54.32 Sciatica, left side (principal); I10 Essential (primary) hypertension
CPT/HCPCS: 99283

== ENCOUNTER 2017-10-08 08:00 | Outpatient (CLI) | payer MEDICARE, OTHER | END 2017-10-08 08:01 | disposition home or self-care (01) | LOC: LAB.WCP 08:00 | PROVIDERS: ATTEND Physician Assistant Medical | DX: M54.5 Low back pain (principal) | CPT/HCPCS: 80307; 81599; G0480; 80361; 80365 ==

== ENCOUNTER 2017-12-13 11:08 | Emergency (ER) | payer MEDICARE, OTHER ==
--- NOTE | 2017-12-13 11:33 | ED Physician Documentation ---
PD HPI HEENT - Stated complaint Stated Complaint: SINUS PX - Chief complaint Chief Complaint: Heent - History obtained from History obtained from: Patient - History of Present Illness Timing - onset: How many weeks ago (3) Timing - duration: Weeks Timing - details: Gradual onset, Still present (worse the past 3-4 days with sinus pain, pressure, green discharge, and upper teeth pain on right.) Associated symptoms: Congestion, Rhinorrhea, Facial swelling. No: Fever Similar symptoms before: Diagnosis (sinus infection) Recently seen: Not recently seen Review of Systems Constitutional: reports: Chills. denies: Fever Nose: reports: Rhinorrhea / runny nose, Congestion, Sinus pressure / pain ( right maxillary) Throat: reports: Dental pain / toothache (right upper today) Respiratory: denies: Dyspnea, Cough GI: denies: Nausea, Vomiting, Diarrhea Skin: denies: Rash, Lesions PD PAST MEDICAL HISTORY - Past Medical History Cardiovascular: Hypertension Respiratory: None Endocrine/Autoimmune: None GI: GI bleed, Ulcers : None, Kidney stones HEENT: None Psych: Post traumatic stress disorder Musculoskeletal: Osteoarthritis, Fibromyalgia, Chronic back pain Derm: None - Past Surgical History Past Surgical History: Yes Ortho: Arthroscopic surgery, Other - Present Medications Home Medications: Ambulatory Orders Medication Instructions Recorded Confirmed Acetaminophen/Cod 300/30 [Tylenol 1 each PO ONCE 12/13/17 12/13/17 #3] Cetirizine [ZyrTEC] 10 mg PO DAILY #20 tablet 12/13/17 Dexamethasone [Decadron] 4 mg PO DAILY #5 tablet 12/13/17 Doxycycline Monohydrate 100 mg PO BID #14 tablet 12/13/17 Garlise 12/13/17 Telmisartan/Hydrochlorothiazid 12/13/17 [Micardis Hct 80-25 mg Tablet] Testoterone Injections 12/13/17 Tramadol HCl 50 mg PO Q6H PRN #20 tablet 12/13/17 - Allergies Allergies/Adverse Reactions: Allergies Allergy/AdvReac Type Severity Reaction Status Date / Time strawberry [[place]] Allergy Intermediate unk Verified 12/13/17 11:13 hydrocodone Allergy Unknown Verified 12/13/17 11:13 NSAIDS (Non-Steroidal AdvReac Unknown Verified 12/13/17 11:13 Anti-Inflamma - Social History Does the pt smoke?: No Smoking Status: Never smoker Does the pt drink ETOH?: No Does the pt have substance abuse?: No - Immunizations Immunizations are current?: Yes - POLST Patient has POLST: No PD ED PE NORMAL - Vitals Vital signs reviewed: Yes - General General: Alert and oriented X 3, No acute distress, Well developed/nourished - HEENT HEENT: Ears normal, Moist mucous membranes, Pharynx benign, Other (right sinus tender to percussion. ) - Neck Neck: Supple, no meningeal sign, No adenopathy - Cardiac Cardiac: RRR, No murmur - Respiratory Respiratory: Clear bilaterally Results - Vitals Vitals: Oxygen O2 Source Room air PD MEDICAL DECISION MAKING - ED course Complexity details: considered differential, d/w patient - Sepsis Event Vital Signs: Oxygen O2 Source Room air Departure - Departure Disposition: 01 Home, Self Care Clinical Impression: Acute sinusitis Qualifiers: Sinusitis location: maxillary Recurrence: non-recurrent Qualified Code(s): J01.00 - Acute maxillary sinusitis, unspecified Condition: Stable Record reviewed to determine appropriate education?: Yes Instructions: ED Sinusitis Abx Tx Follow-Up: FARZAD DAMON [Primary Care Provider] - Prescriptions: Cetirizine [ZyrTEC] 10 mg PO DAILY #20 tablet Dexamethasone [Decadron] 4 mg PO DAILY #5 tablet Doxycycline Monohydrate 100 mg PO BID #14 tablet Tramadol HCl 50 mg PO Q6H PRN #20 tablet PRN Reason: Pain Comments: You can continue the Flonase spray. Also consider some saline nasal spray several times a day to help clear the nasal passageway and promote sinus drainage. Use Decadron steroid anti-inflammatory daily for 5 days and doxycycline antibiotic twice daily for a week. Also add antihistamine cetirizine for 1 or 2 weeks. Use Tylenol or tramadol if needed for pains. Recheck if not improving over the next several days. Discharge Date/Time: 12/13/17 12:26
[2017-12-13] MEDS ORDERED: DEXAMETHASONE 10 MG/ML VIAL PO STA (12:00)
[2017-12-13] MEDS ORDERED: ACETAMINOPHEN 325 MG TABLET PO STA (12:00)
[2017-12-13] MEDS ORDERED: DOXYCYCLINE 100 MG TABLET PO STA (12:00)
[2017-12-13] MEDS ORDERED: CHERRY SYRUP 10 ML UDC PO ONE (12:18)
[2017-12-13 12:26] VITALS: BP 132/88
== END 2017-12-13 12:26 | disposition home or self-care (01) ==
LOC: ED 11:08
DX: J01.00 Acute maxillary sinusitis, unspecified (principal)
CPT/HCPCS: 99283; A9270

== ENCOUNTER 2018-04-02 09:51 | Emergency (ER) | payer MEDICARE, OTHER ==
[2018-04-02 10:05] VITALS: BP 146/97
== END 2018-04-02 10:20 | disposition left against medical advice (07) ==
LOC: ED 09:51
DX: Z53.21 Procedure and treatment not carried out due to patient leaving prior to being seen by health care provider (principal)

== ENCOUNTER 2018-04-21 10:31 | Emergency (ER) | payer MEDICARE, OTHER ==
[2018-04-21 10:42] VITALS: BP 135/94
[2018-04-21] MEDS ORDERED: DEXAMETHASONE 10 MG/ML VIAL PO STA (11:33)
--- NOTE | 2018-04-21 11:36 | ED Physician Documentation ---
PD HPI BACK PAIN - Stated complaint Stated Complaint: LEFT LEG PX - Chief complaint Chief Complaint: Back Pain - History obtained from History obtained from: Patient - History of Present Illness Timing - onset: How many weeks ago (2) Timing - duration: Weeks (2) Timing - details: Gradual onset, Still present, Waxing and waning Location: Lower, Left Quality: Pain, Spasm, Sharp, Similar to prior episodes Associated symptoms: Numbness. 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 He states that he was at work he lifted a heavy lid and this seemed to get his back irritated and then he did some more lifting and twisting at work and over the past 3 days his pain is been especially bad. He did take some leftover Flexeril over the week weekend but his pain is not resolving. He has some radiation of the pain into his left leg on the lateral aspect of the thigh and calf. Review of Systems Constitutional: denies: Fever, Chills Ears: denies: Ear pain Nose: denies: Congestion Throat: denies: Sore throat Cardiac: denies: Chest pain / pressure, Palpitations Respiratory: denies: Dyspnea, Cough GI: denies: Abdominal Pain, Nausea, Vomiting, Diarrhea : denies: Dysuria, Frequency PD PAST MEDICAL HISTORY - Past Medical History Cardiovascular: Hypertension Respiratory: None Endocrine/Autoimmune: None GI: GI bleed, Ulcers : Kidney stones HEENT: None Psych: Post traumatic stress disorder Musculoskeletal: Osteoarthritis, Fibromyalgia, Chronic back pain Derm: None - Past Surgical History Past Surgical History: Yes Ortho: Arthroscopic surgery, Other - Present Medications Home Medications: Ambulatory Orders Medication Instructions Recorded Confirmed Acetaminophen/Cod 300/30 [Tylenol 1 each PO ONCE 12/13/17 04/21/18 #3] Garlise 12/13/17 Telmisartan/Hydrochlorothiazid 1 tab ORAL DAILY 12/13/17 [Micardis Hct 80-25 mg Tablet] Testoterone Injections 0.5 ml ORAL 12/13/17 Cyclobenzaprine [Flexeril] 10 mg PO TID PRN #20 tablet 04/21/18 Gabapentin [Gralise] 04/21/18 Oxycodone HCl/Acetaminophen 1 - 2 each PO Q6H PRN #14 tablet 04/21/18 [Percocet 5-325 mg Tablet] - Allergies Allergies/Adverse Reactions: Allergies Allergy/AdvReac Type Severity Reaction Status Date / Time strawberry [[place]] Allergy Intermediate unk Verified 04/21/18 10:43 hydrocodone Allergy Unknown Verified 04/21/18 10:43 NSAIDS (Non-Steroidal AdvReac Unknown Verified 04/21/18 10:43 Anti-Inflamma - Social History Does the pt smoke?: No Smoking Status: Never smoker Does the pt drink ETOH?: No Does the pt have substance abuse?: No - Immunizations Immunizations are current?: Yes - POLST Patient has POLST: No PD ED PE NORMAL - General General: Alert and oriented X 3, Well developed/nourished, Other (prefers to stand and appears to be in pain ) - HEENT HEENT: Atraumatic, PERRL, EOMI - Neck Neck: Supple, no meningeal sign - Respiratory Respiratory: No respiratory distress - Back Back: No CVA TTP, No spinal TTP, Other (There is tenderness to the paraspinous muscles of the lumbar spine on the left side extending into the sciatic notch. 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 Departure - Departure Disposition: 01 Home, Self Care Clinical Impression: Sciatic pain Qualifiers: Laterality: left Qualified Code(s): M54.32 - Sciatica, left side Condition: Stable Instructions: ED Sciatica Follow-Up: FARZAD DAMON [Primary Care Provider] - Prescriptions: Cyclobenzaprine [Flexeril] 10 mg PO TID PRN #20 tablet PRN Reason: Spasms Oxycodone HCl/Acetaminophen [Percocet 5-325 mg Tablet] 1 - 2 each PO Q6H PRN #14 tablet PRN Reason: pain Forms: Activity restrictions
[2018-04-21] MEDS ORDERED: CHERRY SYRUP 10 ML UDC PO ONE (11:40)
== END 2018-04-21 11:44 | disposition home or self-care (01) ==
LOC: ED 10:31
DX: M54.32 Sciatica, left side (principal); I10 Essential (primary) hypertension
CPT/HCPCS: 99283; A9270

== ENCOUNTER 2018-05-25 12:39 | Outpatient (CLI) | payer MEDICARE, OTHER ==
[2018-05-25] MEDS ORDERED: IOVERSOL 320 100 ML VIAL IVP ONE ×2 (13:16→15:32)
--- NOTE | 2018-05-25 17:25 | CT Report ---
Reason: CALCULUS OF KIDNEY,CYST OF KIDNEY Procedure Date: 05/25/2018 Accession Number: [id number] / [id number] Procedure: CT - IVP CPT Code: FULL RESULT: EXAM: CT ABDOMEN AND PELVIS WITHOUT AND WITH CONTRAST (CT IVP) EXAM DATE: 05/25/2018 02:19 PM. CLINICAL HISTORY: CALCULUS OF Kidney, cyst OF KIDNEY. COMPARISONS: 04/14/2017 and 10/02/2013. TECHNIQUE: Routine helical imaging was performed through the kidneys, ureters and bladder in the precontrast, postcontrast and delayed phase. IV Contrast: 100 cc Optiray 320. Reconstructions: Coronal and sagittal. In accordance with CT protocol optimization, one or more of the following dose reduction techniques were utilized for this exam: automated exposure control, adjustment of mA and/or KV based on patient size, or use of iterative reconstructive technique. FINDINGS: Lung Bases: Unremarkable. Right Kidney/Ureter: At least 2 nonobstructing stones, the largest measuring 3.6 mm. No ureteral stone or hydronephrosis. A 16.5 mm cyst with a smaller adjacent cyst. No definite solid mass. Left Kidney/Ureter: At least 2 nonobstructing stones, the largest measuring 5.5 mm. No ureteral stone or hydronephrosis. No definite mass. Other Solid Organs: The liver, spleen, pancreas, gallbladder, and adrenal glands are unremarkable.The bile ducts are unremarkable. Peritoneal Cavity/Bowel: Normal. No free fluid, free air or adenopathy. No masses. Bowel loops are unremarkable. Normal appendix. Pelvic Organs: No bladder stones, obstruction or masses. The visualized pelvic organs are unremarkable. Vasculature: Normal. Bones: Normal. Other: Tiny left inguinal hernia with fat involvement only. IMPRESSION: 1. Bilateral nonobstructing renal calculi. 2. Small right renal cysts, unchanged since 2013. RADIA
== END 2018-05-25 12:40 | disposition home or self-care (01) ==
LOC: DI 12:39
PROVIDERS: ATTEND Specialist
DX: N20.0 Calculus of kidney (principal); Q61.02 Congenital multiple renal cysts
CPT/HCPCS: 74178; Q9967

== ENCOUNTER 2018-08-19 06:59 | Emergency (ER) | payer MEDICARE, OTHER ==
[2018-08-19 07:15] VITALS: BP 171/102
[2018-08-19] MEDS ORDERED: DEXAMETHASONE 10 MG/ML VIAL PO STA (07:20)
[2018-08-19] MEDS ORDERED: KETOROLAC 60 MG/2 ML VIAL IM STA (07:20)
--- NOTE | 2018-08-19 07:23 | ED Physician Documentation ---
PD HPI BACK PAIN - Stated complaint Stated Complaint: BACK PAIN - Chief complaint Chief Complaint: Back Pain - History obtained from History obtained from: Patient - History of Present Illness Timing - onset: How many days ago (10) Timing - duration: Days (10) Timing - details: Still present Location: Lower, Left Quality: Pain Improves with: Other (lidocaine patch) Worsened by: Movement Contributing factors: Lifting Similar symptoms before: Diagnosis (h/o sciatica) - Additional information Additional information: The patient is a 43-year-old male who presents with left lower back pain radiating to his left calf. 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 He has been using lidocaine patches, which temporarily provide some relief. He has a history of similar symptoms, and underwent MRI 1 year ago revealing left L5-S1 nerve impingement. In September 2017 he underwent a lumbar discectomy. He denies fever, urinary incontinence, or new neurologic deficit. He has had slight decreased sensation on the left lateral foot since his surgery. Review of Systems Constitutional: denies: Fever Nose: denies: Congestion Respiratory: denies: Cough GI: denies: Abdominal Pain, Nausea, Vomiting : denies: Dysuria, Incontinent Skin: denies: Rash Musculoskeletal: reports: Back pain. denies: Extremity swelling Neurologic: denies: Focal weakness, Headache PD PAST MEDICAL HISTORY - Past Medical History Past Medical History: Yes Cardiovascular: Hypertension Respiratory: None Endocrine/Autoimmune: None GI: GI bleed, Ulcers : Kidney stones HEENT: None Psych: Post traumatic stress disorder Musculoskeletal: Osteoarthritis, Fibromyalgia, Chronic back pain Derm: None - Past Surgical History Past Surgical History: Yes Ortho: Arthroscopic surgery, Other - Present Medications Home Medications: Ambulatory Orders Medication Instructions Recorded Confirmed Acetaminophen/Cod 300/30 [Tylenol 1 each PO ONCE 12/13/17 04/21/18 #3] Garlise 12/13/17 Telmisartan/Hydrochlorothiazid 1 tab ORAL DAILY 12/13/17 [Micardis Hct 80-25 mg Tablet] Testoterone Injections 0.5 ml ORAL 12/13/17 Cyclobenzaprine [Flexeril] 10 mg PO TID PRN #20 tablet 04/21/18 Gabapentin [Gralise] 04/21/18 Oxycodone HCl/Acetaminophen 1 - 2 each PO Q6H PRN #14 tablet 04/21/18 [Percocet 5-325 mg Tablet] Cyclobenzaprine [Flexeril] 10 mg PO TID PRN #20 tablet 08/19/18 Oxycodone HCl/Acetaminophen 1 - 2 each PO Q6H PRN #14 tablet 08/19/18 [Percocet 5-325 mg Tablet] - Allergies Allergies/Adverse Reactions: Allergies Allergy/AdvReac Type Severity Reaction Status Date / Time strawberry [[place]] Allergy Intermediate unk Verified 08/19/18 07:15 hydrocodone Allergy Unknown Verified 08/19/18 07:15 NSAIDS (Non-Steroidal AdvReac Unknown Verified 08/19/18 07:15 Anti-Inflamma - Social History Does the pt smoke?: No Smoking Status: Never smoker Does the pt drink ETOH?: No Does the pt have substance abuse?: No - Immunizations Immunizations are current?: Yes - POLST Patient has POLST: No PD ED PE NORMAL - Vitals Vital signs reviewed: Yes (hypertensive) - General General: Alert and oriented X 3, Well developed/nourished, Other (Standing at the bedside.) - HEENT HEENT: Atraumatic - Neck Neck: No adenopathy, No JVD - Cardiac Cardiac: RRR - Respiratory Respiratory: No respiratory distress, Clear bilaterally - Abdomen Abdomen: Soft, Non tender - Back Back: No CVA TTP, No spinal TTP, Other (Tenderness to palpation in the left sciatic region. No tenderness to palpation along the spinous processes. Well- healed midline lumbar surgical scar.) - Derm Derm: No rash - Extremities Extremities: No edema, No calf tenderness / cord, Other (Straight leg raise test is positive on the left at 25 degrees elevation. Negative on the right.) - Neuro Neuro: Alert and oriented X 3, No motor deficit, Other (Slightly decreased light touch sensation on the lateral aspect of the left foot compared to the right. Deep tendon reflexes are 2+ and equal bilaterally at the patellar tendons.) Results - Vitals Vitals: Vital Signs - 24 hr 08/19/18 07:05 Temperature 36.1 C L Heart Rate 83 Respiratory 16 Rate Blood Pressure 171/102 H O2 Saturation 100 Oxygen O2 Source Room air PD MEDICAL DECISION MAKING - ED course Complexity details: reviewed old records, considered differential, d/w patient ED course: The patient's lower back pain is most consistent with left sided sciatica. The clinical presentation does not suggest epidural abscess, spinal stenosis, or cauda equina syndrome. Treatment in the emergency department included admi nistration of Ketoralac 60 mg IM, and Dexamethasone 10 mg orally. The patient is being discharged with prescription for Flexeril and Percocet, 14 tablets. I discussed with him the expected course of illness, symptomatic treatment and outpatient follow-up, as well as potentially worrisome signs or symptoms that should prompt reevaluation in the emergency department. Departure - Departure Disposition: 01 Home, Self Care Clinical Impression: Left-sided low back pain with sciatica Qualifiers: Chronicity: acute Sciatica laterality: sciatica of left side Qualified Code(s): M54.42 - Lumbago with sciatica, left side Condition: Stable Instructions: ED Sciatica Follow-Up: FARZAD DAMON [Primary Care Provider] - Prescriptions: Cyclobenzaprine [Flexeril] 10 mg PO TID PRN #20 tablet PRN Reason: Spasms Oxycodone HCl/Acetaminophen [Percocet 5-325 mg Tablet] 1 - 2 each PO Q6H PRN #14 tablet PRN Reason: pain Comments: Apply ice pack to your lower back intermittently for the next 3 or 4 days. You can continue to use lidocaine patch as previously prescribed. You can jose use ibuprofen, up to 800 mg 3 times daily for its anti-inflammatory effect. You can use as Percocet and Flexeril prescribed if needed for pain or muscle spasms. Let pain be your guide to activity level. Follow up with your primary physician within 1-2 weeks. Call to schedule an appointment. Return to the emergency department if you develop increasing pain, numbness or weakness, urinary incontinence, or otherwise worsening symptoms. Forms: Activity restrictions
[2018-08-19] MEDS ORDERED: CHERRY SYRUP 10 ML UDC PO ONE (07:29)
== END 2018-08-19 07:30 | disposition home or self-care (01) ==
LOC: ED 06:59
DX: M54.42 Lumbago with sciatica, left side (principal); I10 Essential (primary) hypertension
CPT/HCPCS: 96372; 99283; A9270

== ENCOUNTER 2019-01-13 06:13 | Emergency (ER) | payer MEDICARE, OTHER ==
[2019-01-13 06:21] VITALS: BP 142/90
[2019-01-13] MEDS ORDERED: LIDOCAINE VISCOUS 2% 15 ML UDC MM STA (06:33)
[2019-01-13] MEDS ORDERED: DEXAMETHASONE 10 MG/ML VIAL PO STA (06:33)
[2019-01-13] MEDS ORDERED: FLUCONAZOLE 100 MG TABLET PO STA (06:33)
[2019-01-13] MEDS ORDERED: CHERRY SYRUP 10 ML UDC PO ONE (06:33)
[2019-01-13] MEDS ORDERED: CLINDAMYCIN 150 MG CAPSULE PO STA (06:33)
--- NOTE | 2019-01-13 06:34 | ED Physician Documentation ---
PD HPI HEENT - Stated complaint Stated Complaint: SWOLLEN TONGUE - Chief complaint Chief Complaint: Heent - History obtained from History obtained from: Patient - History of Present Illness Timing - onset: How many days ago (2-3) Timing - duration: Days (few) Timing - details: Gradual onset, Still present Location: Mouth (He has had progressively worsening pain redness and inflammation of the gums and under the tongue and then on the buccal surface of the mouth. He does take Suboxone strips and has been doing that for 3 months but had an increase in dose a week ago. 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 He noted the symptoms develop a few days after that. He denies any other change in medicines. He has not had a change in diet. He has not been on any recent antibiotics or such.) Worsens: Swalllowing (He has had pain with swallowing he denies any pain or s welling in the posterior pharynx throat or chest. He has not noticed any trouble breathing.) Associated symptoms: No: Fever, Congestion, Swollen nodes, Facial swelling, Cough Similar symptoms before: Has not had sx before Recently seen: Not recently seen Review of Systems Constitutional: denies: Fever Nose: denies: Rhinorrhea / runny nose, Congestion Throat: denies: Sore throat (just soreness of the gums/cheeks/under tongue) Cardiac: denies: Chest pain / pressure Respiratory: denies: Dyspnea, Cough GI: denies: Nausea, Vomiting Skin: denies: Rash, Lesions PD PAST MEDICAL HISTORY - Past Medical History Past Medical History: Yes Cardiovascular: Hypertension Respiratory: None Endocrine/Autoimmune: None GI: GI bleed, Ulcers : Kidney stones HEENT: None Psych: Post traumatic stress disorder Musculoskeletal: Osteoarthritis, Fibromyalgia, Chronic back pain Derm: None - Past Surgical History Past Surgical History: Yes Ortho: Arthroscopic surgery, Other - Present Medications Home Medications: Ambulatory Orders Medication Instructions Recorded Confirmed Acetaminophen/Cod 300/30 [Tylenol 1 each PO ONCE 12/13/17 04/21/18 #3] Garlise 12/13/17 Telmisartan/Hydrochlorothiazid 1 tab ORAL DAILY 12/13/17 [Micardis Hct 80-25 mg Tablet] Testoterone Injections 0.5 ml ORAL 12/13/17 Cyclobenzaprine [Flexeril] 10 mg PO TID PRN #20 tablet 04/21/18 Gabapentin [Gralise] 04/21/18 Oxycodone HCl/Acetaminophen 1 - 2 each PO Q6H PRN #14 tablet 04/21/18 [Percocet 5-325 mg Tablet] Cyclobenzaprine [Flexeril] 10 mg PO TID PRN #20 tablet 08/19/18 Oxycodone HCl/Acetaminophen 1 - 2 each PO Q6H PRN #14 tablet 08/19/18 [Percocet 5-325 mg Tablet] Clindamycin HCl [Clindamycin 300MG 300 mg PO TID #15 capsule 01/13/19 CAP] Lidocaine Viscous 2% [Xylocaine 5 ml PO Q4H PRN #100 ml 01/13/19 Viscous 2%] Nystatin 500,000 unit PO TID #75 ml 01/13/19 prednisoLONE [Prednisolone] 30 mg PO BID #60 ml 01/13/19 - Allergies Allergies/Adverse Reactions: Allergies Allergy/AdvReac Type Severity Reaction Status Date / Time strawberry [[place]] Allergy Intermediate unk Verified 01/13/19 06:22 hydrocodone Allergy Unknown Verified 01/13/19 06:22 NSAIDS (Non-Steroidal AdvReac Unknown Verified 01/13/19 06:22 Anti-Inflamma - Social History Does the pt smoke?: No Smoking Status: Never smoker Does the pt drink ETOH?: No Does the pt have substance abuse?: Yes Substance Use and Type: Prescription Pills - Immunizations Immunizations are current?: Yes - POLST Patient has POLST: No PD ED PE NORMAL - Vitals Vital signs reviewed: Yes - General General: Alert and oriented X 3, No acute distress, Well developed/nourished - HEENT HEENT: No: Pharynx benign (The posterior pharynx and uvula appear normal without any swelling. The tongue itself does not have any swelling. Sublingual area is erythematous with mild swelling there. The lower gingiva on the buccal side shows erythema without any erosions. There is erythema on the buccal portion of the oral mucosa on the left side as well. There are no blisters nor sores.) - Neck Neck: Supple, no meningeal sign, No adenopathy - Cardiac Cardiac: RRR, No murmur - Respiratory Respiratory: Clear bilaterally - Derm Derm: Normal color, Warm and dry - Neuro Neuro: Alert and oriented X 3, No motor deficit, Normal speech Results - Vitals Vitals: Vital Signs - 24 hr 01/13/19 06:15 Temperature 36.1 C L Heart Rate 80 Respiratory 18 Rate Blood Pressure 142/90 H O2 Saturation 99 Oxygen O2 Source Room air PD MEDICAL DECISION MAKING - ED course Complexity details: considered differential (He does have significant redness and rawness of the gingiva and oral mucosa in the area where he uses the Suboxone strips. He will need to talk to his provider about potentially changing route of medication if this does not improve. He had been using them for a few months now without any problems so he may have just gotten into a little inflammation and subsequently some infectious gingivitis. We will treated with antifungal and antibiotic. We will also give some liquid steroid that he can swish locally. Oral mucosal irritation is listed as a side effect of Suboxone strips in [employer] reference.), d/w patient Departure - Departure Disposition: 01 Home, Self Care Clinical Impression: Mucosal irritation of oral cavity, Gingivitis Condition: Stable Record reviewed to determine appropriate education?: Yes Follow-Up: Ashkan Smalls MD [Primary Care Provider] - [facility] [Provider Group] Prescriptions: Clindamycin HCl [Clindamycin 300MG CAP] 300 mg PO TID #15 capsule Lidocaine Viscous 2% [Xylocaine Viscous 2%] 5 ml PO Q4H PRN #100 ml PRN Reason: Pain Nystatin 500,000 unit PO TID #75 ml prednisoLONE [Prednisolone] 30 mg PO BID #60 ml Comments: Irritation of the oral mucosa is listed as a potential side effect of the Sub oxone strips. Call your prescriber for the Suboxone to discuss the side effect and see if it warrants changing the route of the prescription. Otherwise it may have just gotten slightly inflamed and there may now be an infection as well as it does look pretty raw. As such we will treated for both fungal and bacterial potential infections with the nystatin and antifungal and the clindamycin oral antibiotic. We will treat the inflammation with prednisolone steroid liquid to swish it around the gums and cheeks where its inflamed and then you can swallow it. You can treat symptoms with lidocaine oral solution for numbing and similarly can use a little bit in the gums and cheeks for decreased symptoms. Otherwise add Tylenol as needed for pain. Recheck if not improved well over the next few days.
== END 2019-01-13 06:53 | disposition home or self-care (01) ==
LOC: ED 06:13
DX: K12.1 Other forms of stomatitis (principal); K05.01 Acute gingivitis, non-plaque induced; I10 Essential (primary) hypertension
CPT/HCPCS: 99284; A9270

== ENCOUNTER 2019-02-22 14:14 | Emergency (ER) | payer OTHER, MEDICARE ==
[2019-02-22] MEDS ORDERED: DEXAMETHASONE 10 MG/ML VIAL IM STA (15:25)
[2019-02-22] MEDS ORDERED: KETOROLAC 60 MG/2 ML VIAL IM STA (15:25)
--- NOTE | 2019-02-22 15:28 | ED Physician Documentation ---
PD HPI BACK INJURY - Stated complaint Stated Complaint: BACK PX - History obtained from History obtained from: Patient - History of Present Illness Location: Lower (44-year-old gentleman with history of recurrent intermittent back pain was at work today. He closed the perez on something and felt a jarring and then bent over and could not get back up because of severe back spasm that radiated into the buttocks a little bit. There is no associated weakness, numbness, or tingling of the saddle area, no incontinence, no fevers. This is similar to prior episodes of back pain.) Review of Systems Constitutional: denies: Fever, Chills Cardiac: reports: Reviewed and negative Respiratory: reports: Reviewed and negative PD PAST MEDICAL HISTORY - Past Medical History Past Medical History: Yes Cardiovascular: Hypertension Respiratory: None Endocrine/Autoimmune: None GI: GI bleed, Ulcers : Kidney stones HEENT: None Psych: Post traumatic stress disorder Musculoskeletal: Osteoarthritis, Fibromyalgia, Chronic back pain Derm: None - Past Surgical History Past Surgical History: Yes Ortho: Arthroscopic surgery, Other - Present Medications Home Medications: Ambulatory Orders Medication Instructions Recorded Confirmed Telmisartan/Hydrochlorothiazid 1 tab ORAL DAILY 12/13/17 [Micardis Hct 80-25 mg Tablet] Testoterone Injections 0.5 ml ORAL 12/13/17 Cyclobenzaprine [Flexeril] 10 mg PO TID PRN #20 tablet 02/22/19 Oxycodone HCl/Acetaminophen 1 - 2 each PO Q6H PRN #14 tablet 02/22/19 [Percocet 5-325 mg Tablet] - Allergies Allergies/Adverse Reactions: Allergies Allergy/AdvReac Type Severity Reaction Status Date / Time strawberry [[place]] Allergy Intermediate unk Verified 02/22/19 14:18 hydrocodone Allergy Unknown Verified 02/22/19 14:18 NSAIDS (Non-Steroidal AdvReac Unknown Verified 02/22/19 14:18 Anti-Inflamma - Social History Does the pt smoke?: No Smoking Status: Never smoker Does the pt drink ETOH?: No Does the pt have substance abuse?: Yes - Immunizations Immunizations are current?: Yes - POLST Patient has POLST: No PD ED PE NORMAL - Vitals Vital signs reviewed: Yes - General General: Alert and oriented X 3, Other (Comfortable at rest, winces with motion) - Abdomen Abdomen: Soft, Non tender - Back Back: No spinal TTP, Other (Tender to the low paralumbar areas bilaterally. ) - Extremities Extremities: Other (My normal back exam) - Neuro Neuro: Other (The patient has equal and normal Achilles and patellar reflexes bilaterally. Normal sensation in all areas of the legs. Patient denies saddle anesthesia. Normal strength in flexion-extension at the ankles, knees, and flexion of the hips.) Results - Vitals Vitals: Vital Signs - 24 hr 02/22/19 14:18 Temperature 36.5 C Heart Rate 76 Respiratory 16 Rate O2 Saturation 100 Oxygen O2 Source Room air Departure - Departure Disposition: Home, Self Care Clinical Impression: Back pain Qualifiers: Back pain location: low back pain Chronicity: acute Back pain laterality: bilateral Sciatica presence: without sciatica Qualified Code(s): M54.5 - Low back pain Condition: Good Record reviewed to determine appropriate education?: Yes Instructions: ED Neck Back Pain General Prescriptions: Cyclobenzaprine [Flexeril] 10 mg PO TID PRN #20 tablet PRN Reason: Spasms Oxycodone HCl/Acetaminophen [Percocet 5-325 mg Tablet] 1 - 2 each PO Q6H PRN #14 tablet PRN Reason: pain Comments: Return for new or worsening symptoms. Follow-up with your physician, next available appointment. Forms: Activity restrictions
[2019-02-22 15:44] VITALS: BP 151/99
== END 2019-02-22 15:43 | disposition home or self-care (01) ==
LOC: ED 14:14
DX: M54.5 Low back pain (principal); I10 Essential (primary) hypertension
CPT/HCPCS: 96372; 99283; 99284

== ENCOUNTER 2019-05-17 14:46 | Outpatient (CLI) | payer MEDICARE, OTHER ==
--- NOTE | 2019-05-17 16:58 | CARDIAC PROCEDURE NOTE ---
DATE OF SERVICE: 05/17/2019 Physician: Eileen Thompson MD, [facility] INDICATION: Chest pain. CARDIAC RISK FACTORS: Hypertension (he admitted it was untreated for the past 2 years), male gender, strong family history of early heart disease (maternal grandfather in his 50s and mother with cardiovascular disease her 50s). DESCRIPTION OF PROCEDURE: After signing informed consent, patient underwent a Michael-protocol treadmill stress test. No imaging was ordered with this test. RESTING HEART RATE: 80. PEAK HEART RATE: 152 (86% predicted maximum heart rate for age). RESTING BLOOD PRESSURE: 160/100. PEAK BLOOD PRESSURE: 215/93. Patient exercised for 6 minutes and 29 seconds on a Michael-protocol treadmill stress test. Peak HR achieved was 86% PMHR for age, and 8.2 METS. He developed shortness of breath at the end of stage 1, which he described as moderate to severe at peak. Oxygen saturation was 94-99% throughout the entire test. Patient developed his typical chest pain at peak heart rate, which he rated 5/10. The exercise was stopped at this point. The chest pain resolved spontaneously after 4 minutes of recovery, but then he described left shoulder and left scapular pain. RESTING EKG: Normal sinus rhythm, within normal limits. EKG AT PEAK: New T-wave flattening in leads V3 through V6. SUMMARY 1. Normal resting EKG. 2. Patient developed his typical symptoms of chest pain and also had early dyspnea. 3. Moderate exercise tolerance. 4. Significant ischemic changes develop, by EKG criteria, during exercise. 5. No imaging was ordered with this test. I spoke to Dr. Pérez personally regarding abnormal stress test. The patient was taken to the emergency room for further evaluation and management. cc: Shamar Pérez DO TD: 05/17/2019 16:33 MTDD
== END 2019-05-17 14:47 | disposition home or self-care (01) ==
LOC: DI 14:46
PROVIDERS: ATTEND Family Medicine
DX: R07.89 Other chest pain (principal); I10 Essential (primary) hypertension; R06.09 Other forms of dyspnea; Z82.49 Family history of ischemic heart disease and other diseases of the circulatory system

== ENCOUNTER 2019-05-17 16:23 | Emergency (ER) | payer MEDICARE, OTHER ==
[2019-05-17] MEDS ORDERED: ASPIRIN CHEW 81 MG TABLET PO STA (17:07)
--- NOTE | 2019-05-17 17:09 | ED Physician Documentation ---
PD HPI CHEST PAIN - Stated complaint Stated Complaint: CP - Chief complaint Chief Complaint: Cardiac - History obtained from History obtained from: Patient, Other ([employer]) - History of Present Illness Timing - details: Abrupt onset Quality: Pressure, Tightness Location: Left chest Radiation: Back (left scapula), Left upper extremity (left shoulder) Improved by: Rest Worsened by: Exertion Associated symptoms: Shortness of air. No: Diaphoresis, Nausea, Vomiting, Feeling faint / dizzy, General Weakness, Palpitations, Cough Similar symptoms before: Other (has had these symptoms multiple times over the last few weeks and had an abnormal stress test today with recurrent symptoms and t wave inversions in lateral leads) Recently seen: Other (stress test today) - Treatment prior to arrival Treatment prior to arrival: none Review of Systems Ten Systems: 10 systems reviewed and negative Constitutional: denies: Fever Cardiac: reports: Chest pain / pressure. denies: Palpitations, Pedal edema, Calf pain Respiratory: reports: Dyspnea. denies: Cough, Hemoptysis, Wheezing GI: denies: Abdominal Pain, Nausea, Vomiting Musculoskeletal: reports: Back pain, Extremity pain (L shoulder pain, scapular pain). denies: Neck pain Neurologic: denies: Generalized weakness, Focal weakness, Numbness Psychiatric: reports: Reviewed and negative Endocrine: reports: Reviewed and negative Immunocompromised: reports: Reviewed and negative PD PAST MEDICAL HISTORY - Past Medical History Past Medical History: Yes Cardiovascular: Hypertension Respiratory: None Endocrine/Autoimmune: None GI: GI bleed, Ulcers : Kidney stones HEENT: None Psych: Post traumatic stress disorder Musculoskeletal: Osteoarthritis, Fibromyalgia, Chronic back pain Derm: None - Past Surgical History Past Surgical History: Yes Ortho: Arthroscopic surgery, Other - Present Medications Home Medications: Ambulatory Orders Medication Instructions Recorded Confirmed Telmisartan/Hydrochlorothiazid 1 tab ORAL DAILY 12/13/17 [Micardis Hct 80-25 mg Tablet] Testoterone Injections 0.5 ml ORAL 12/13/17 Cyclobenzaprine [Flexeril] 10 mg PO TID PRN #20 tablet 02/22/19 Oxycodone HCl/Acetaminophen 1 - 2 each PO Q6H PRN #14 tablet 02/22/19 [Percocet 5-325 mg Tablet] - Allergies Allergies/Adverse Reactions: Allergies Allergy/AdvReac Type Severity Reaction Status Date / Time strawberry [[place]] Allergy Intermediate unk Verified 05/17/19 16:27 hydrocodone Allergy Unknown Verified 05/17/19 16:27 NSAIDS (Non-Steroidal AdvReac Unknown Verified 05/17/19 16:27 Anti-Inflamma - Social History Does the pt smoke?: No Smoking Status: Never smoker Does the pt drink ETOH?: No Does the pt have substance abuse?: Yes - Immunizations Immunizations are current?: Yes - POLST Patient has POLST: No PD ED PE NORMAL - Vitals Vital signs reviewed: Yes - General General: Alert and oriented X 3, No acute distress, Well developed/nourished - HEENT HEENT: Atraumatic, Pharynx benign - Neck Neck: Supple, no meningeal sign, No JVD - Cardiac Cardiac: RRR, No murmur, No gallop, No rub - Respiratory Respiratory: No respiratory distress, Clear bilaterally - Abdomen Abdomen: Soft, Non tender, Non distended - Male Male : Deferred - Rectal Rectal: Deferred - Derm Derm: Normal color, Warm and dry, No rash - Extremities Extremities: No deformity, No edema - Neuro Neuro: Alert and oriented X 3, Normal speech Eye Opening: Spontaneous Motor: Obeys Commands Verbal: Oriented GCS Score: 15 - Psych Psych: Normal mood, Normal affect Results - Vitals Vitals: Vital Signs - 24 hr 05/17/19 05/17/19 05/17/19 16:27 17:21 17:30 Temperature 36.7 C Heart Rate 100 93 104 H Respiratory 14 14 18 Rate Blood Pressure 173/93 H 166/109 H 140/92 H O2 Saturation 99 97 95 Oxygen O2 Source Room air - EKG (time done) 16:33 Rate: Rate (enter#) (99) Rhythm: NSR [place]: Normal Intervals: Normal [place] QRS: Normal Ischemia: Normal ST segments, Other (isolated t wave inversion in lead III). No: ST elevation c/w ischemia, ST depression Computer interpretation: Agree with computer - Labs Labs: Laboratory Tests 05/17/19 05/17/19 05/17/19 17:05 17:05 17:05 WBC 7.0 RBC 5.81 Hgb 16.5 Hct 50.2 MCV 86.4 MCH 28.4 MCHC 32.9 RDW 13.2 Plt Count 226 MPV 10.5 Neut # (Auto) 3.2 Lymph # (Auto) 2.6 [place] # (Auto) 0.7 Eos # (Auto) 0.4 Baso # (Auto) 0.1 Absolute Nucleated RBC 0.00 Nucleated RBC % 0.0 Sodium 138 Potassium 3.7 Chloride 101 Carbon Dioxide 29 Anion Gap 8.0 BUN 9 Creatinine 1.0 Estimated GFR (MDRD) 81 L Glucose 108 H Calcium 9.0 Troponin I High Sens < 2.3 L - Rads (name of study) CXR Radiology: Final report received, EMP read contemporaneously, See rad report PD MEDICAL DECISION MAKING - ED course Complexity details: reviewed results, re-evaluated patient, considered differential, d/w patient, d/w family ED course: ddx- unstable angina, PE, TAD, anxiety, musculoskeletal chest pain, ACS, NM, GERD, esophageal spasm 44 y/o M who developed chest pain during a stress test as well as elevated BP and t wave inversions on ekg. Symptoms have resolved after NTG here. Pt was given an aspirin. His BP improved to normal. EKG is not acutely ischemic here. First high sensitivity troponin is negative. Doubt PE - no signs of R heart strain on ekg, no risk factors, no tachypnea, tachycardia or hypoxia. CXR is also clear. Pt does not wish to stay for observation admit for CP. I advised him to at least stay for repeat troponin and repeat EKG in a couple of hours. He is willing to stay for this. He understands the risk of heart attack and if he should leave AMA. Dr. Bailey is aware of the patient and will follow up on repeat ekg and troponin and reassess the patient prior to disposition.
[2019-05-17 17:11] LABS: BASOPHILS # (AUTO) 0.1 10^3/uL (0.0-0.1); BASOPHILS % (AUTO) 1.1 %; EOSINOPHILS # (AUTO) 0.4 10^3/uL (0.0-0.7); EOSINOPHILS % (AUTO) 6.3 %; HGB - HEMOGLOBIN 16.5 g/dL (14.0-18.0); LYMPHOCYTES # (AUTO) 2.6 10^3/uL (1.5-3.5); LYMPHOCYTES % (AUTO) 36.6 %; MEAN CORPUSCULAR HEMOGLOBIN 28.4 pg (27.0-31.0); MEAN CORPUSCULAR HGB CONC 32.9 g/dL (32.0-36.0); MEAN CORPUSCULAR VOLUME 86.4 fL (80.0-94.0); MEAN PLATELET VOLUME 10.5 fL (7.4-11.4); MONOCYTES # (AUTO) 0.7 10^3/uL (0.0-1.0); NEUTROPHILS # (AUTO) 3.2 10^3/uL (1.5-6.6); NEUTROPHILS % (AUTO) 45.7 %; PLT - PLATELET COUNT 226 10^3/uL (130-450); RED BLOOD COUNT 5.81 10^6/uL (4.70-6.10); RED CELL DISTRIBUTION WIDTH 13.2 % (12.0-15.0)
[2019-05-17] MEDS: NITROGLYCERIN SL 0.4 MG TABLET SL STA ×2 (17:24→17:31)
[2019-05-17] MEDS ORDERED: ACETAMINOPHEN 325 MG TABLET PO STA (17:33)
--- NOTE | 2019-05-17 17:39 | XRAY Report ---
Reason: chest pain Procedure Date: 05/17/2019 Accession Number: [id number] / [id number] Procedure: XR - Chest 1 View X-Ray CPT Code: 88502 Final Report FULL RESULT: EXAM: CHEST RADIOGRAPHY EXAM DATE: 05/17/2019 05:18 PM. CLINICAL HISTORY: Chest pain. Failed treadmill test. COMPARISON: ABDOMEN ACUTE 03/24/2017 9:09 AM. TECHNIQUE: 1 view. FINDINGS: Lungs/Pleura: No focal opacities evident. No pleural effusion. No pneumothorax. Mediastinum: Within exam limitations, the cardiomediastinal contour is normal. Other: None. IMPRESSION: Normal single view chest. RADIA
[2019-05-17 20:58] VITALS: BP 131/72
[2019-05-18] MEDS ORDERED: METOPROLOL SUCCINATE 25 MG TABLET PO SCH (09:00)
--- NOTE | 2019-05-18 09:39 | ED Physician Documentation ---
ED Addendum - Addendum Addendum: 05/18/19 09:37 repeat Troponin was negative and he remains chest pain free. I talked with patient about results. I consulted Cardiology in [facility], Dr. Bazan, and he will have his office make appt with available provider iin as soon as possible. Meanwhile to Rx Metoprolol 50 mg bid, ASA daily, and NTG PRN. To call their office if chest pain pattern escalates prior to his appt.
== END 2019-05-17 21:02 | disposition home or self-care (01) ==
LOC: ED 16:23
DX: I20.8 Other forms of angina pectoris (principal); I10 Essential (primary) hypertension
CPT/HCPCS: 36415; 71045; 80048; 84484; 85025; 93005; 99283; 99284; A9270

== ENCOUNTER 2019-12-15 07:28 | Day surgery (SDC) | payer MEDICARE, OTHER ==
[2019-12-15] MEDS ORDERED: fentaNYL 250 MCG/5 ML VIAL IVP ONE (07:29)
[2019-12-15] MEDS ORDERED: MIDAZOLAM 2 MG/2 ML VIAL IVP ONE (07:29)
[2019-12-15] MEDS ORDERED: LACTATED RINGERS 1,000 ML IV ONE (07:44)
[2019-12-15] MEDS ORDERED: ONDANSETRON 4 MG/2 ML VIAL ONE (09:40)
[2019-12-15 11:45] VITALS: BP 124/87
== END 2019-12-15 07:29 | disposition home or self-care (01) ==
LOC: SDS 07:28
PROVIDERS: ATTEND Surgery
DX: K62.5 Hemorrhage of anus and rectum (principal); K64.8 Other hemorrhoids; Z80.0 Family history of malignant neoplasm of digestive organs; K59.8 Other specified functional intestinal disorders; I10 Essential (primary) hypertension
CPT/HCPCS: 45378; J3010; J7120

== ENCOUNTER 2020-04-12 15:08 | Outpatient (CLI) | payer MEDICARE, OTHER ==
[2020-04-12 16:02] VITALS: BP 138/95
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
== END 2020-04-12 15:09 | disposition home or self-care (01) ==
LOC: SC 15:08
PROVIDERS: ATTEND Nurse Practitioner Family
DX: G47.33 Obstructive sleep apnea (adult) (pediatric) (principal); E66.9 Obesity, unspecified; Z68.32 Body mass index [BMI] 32.0-32.9, adult
CPT/HCPCS: 99203; G0463; 99212

== ENCOUNTER 2020-06-19 16:35 | Outpatient (CLI) | payer MEDICARE, OTHER ==
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
--- OUTSIDE RECORDS SUMMARY | 2020-06-20 04:53 | EXTERNAL MEDICAL SUMMARY RPT | Continuity of Care Document ---
:1975 Demographics Phone Unavailable Preferred Language Hungarian Marital Status Unknown Anabaptist Affiliation Unknown Race Unknown Ethnic Group Unknown Author Organization [place] Address [address] [id number] Phone Care Team Providers Name Role Phone [place] Unavailable Unavailable Refugio Unavailable Unavailable Petey Unavailable Unavailable WINDE Unavailable Unavailable Rosalino Unavailable Unavailable Winde Unavailable Unavailable Lemme Unavailable Unavailable Richard Unavailable Unavailable Problems date description facility Patient Education [facility] 2013-04-09 14:24 SEX CHROMOSOME ANOM NEC [facility] 2013-08-23 15:[address] [facility] 2013-08-23 15:37 JOINT PAIN-PELVIS [facility] 2013-08-23 15:37 ALLERGY TO OTHER FOODS [facility] 2013-10-02 10:47 ABDOMINAL PAIN, UNSPECIFIED SITE [facility] 2013-10-02 10:47 ABDOMINAL PAIN, LEFT LOWER [facility] QUADRANT 2014-01-17 10:16 DEPRESSIVE DISORDER NEC [facility] 2014-01-17 10:16 UNSP GASTRITIS GASTRODUODENITIS [facility] W/O MENTN HEMORG 2014-01-17 10:16 ABDOMINAL PAIN, UNSPECIFIED SITE [facility] 2014-03-13 14:16 TRANSIENT ALTERATION OF AWARENESS [facility] 2014-03-13 14:16 HYPERSOMNIA, UNSPECIFIED [facility] 2014-03-13 14:16 SLEEP DISTURBANCES [facility] 2014-03-13 14:16 RESPIRATORY ABNORM [facility] 2014-03-17 20:25 OBSTRUCTIVE SLEEP APNEA (ADULT) Merged with [facility] (PEDIATRIC) 2014-03-17 20:25 BODY MASS INDEX 29.0-29.9, ADULT [facility] 2014-04-01 23:37 OBSTRUCTIVE SLEEP APNEA (ADULT) Merged with [facility] (PEDIATRIC) 2014-04-01 23:37 BODY MASS INDEX 29.0-29.9, ADULT [facility] 2014-05-24 14:19 OBSTRUCTIVE SLEEP APNEA (ADULT) Merged with [facility] (PEDIATRIC) 2014-06-14 18:32 OTHER CHRONIC PAIN [facility] 2014-06-14 18:32 HYPERTENSION NOS [facility] [place] 2014-06-14 18:32 UNSP GASTRITIS GASTRODUODENITIS [facility] W/O MENTN HEMORG 2014-06-14 18:32 JOINT PAIN-PELVIS [facility] 2014-07-11 21:03 JOINT PAIN-PELVIS [facility] 2014-07-11 21:03 SCIATICA [facility] [place] 2014-07-25 14:29 OBSTRUCTIVE SLEEP APNEA (ADULT) Merged with [facility] (PEDIATRIC) 2014-10-01 10:18 OTHER ACUTE PAIN [facility] 2014-10-01 10:18 OTHER CHRONIC PAIN [facility] 2014-10-01 10:[address] [facility] 2014-10-01 10:18 JOINT PAIN-PELVIS [facility] [place] 2014-10-31 09:44 OBSTRUCTIVE SLEEP APNEA (ADULT) [facility]erged with [facility] (PEDIATRIC) 2015-01-02 11:[address]AWAL [facility] 2015-01-02 11:45 OPIOID DEPENDENCE-UNSPEC [facility] 2015-01-02 11:45 NAUSEA WITH VOMITING [facility] 2016-06-21 15:41 OTHER CHRONIC PAIN [facility] 2016-06-21 15:41 ESSENTIAL (PRIMARY) HYPERTENSION [facility] 2016-06-21 15:41 U[facility]PECIF[facility] 2016-06-21 15:41 SCIATICA, LEFT SIDE [facility] 2016-06-21 15:41 LOW BACK PAIN [facility] 2016-06-21 15:41 PERSONAL HISTORY OF PEPTIC ULCER [facility] DISEASE 2016-06-21 15:41 PERSONAL HISTORY OF OTHER DISEASES [facility] OF THE DIGESTIVE SYSTEM 2016-06-21 15:41 PERSONAL HISTORY OF URINARY [facility] CALCULI 2016-10-28 10:00 ENCOUNTER FOR THERAPEUTIC DRUG [facility] LEVEL MONITORING 2016-10-28 10:00 COUNSELING, UNSPECIFIED [facility] 2016-10-28 10:00 OTHER WRAPPER HAND (CURRENT) DRUG [facility] THERAPY 2016-11-03 14:59 POST-TRAUMATIC STRESS DISORDER, [facility] UNSPECIFIED 2016-11-03 14:59 SCIATICA, RIGHT SIDE [facility] ical Center 2016-11-03 14:59 LOW BACK PAIN [facility] 2016-11-03 14:59 WRAPPER HAND (CURRENT) USE OF OPIATE [facility] ANALGESIC 2016-11-19 10:[address] [facility] 2016-11-19 10:54 TACHYCARDIA, UNSPECIFIED [facility] 2017-01-07 15:04 OTHER CHRONIC PAIN [facility] 2017-01-07 15:04 ESSENTIAL (PRIMARY) HYPERTENSION [facility] 2017-01-07 15:04 LUMBAGO WITH SCIATICA, LEFT SIDE [facility] 2017-01-07 15:04 LOW BACK PAIN [facility] 2017-01-15 15:[address] OSTE[address]RIT[address] [facility] OF HIP 2017-01-15 15:26 ENCOUNTER FOR OTHER PREPROCEDURAL [facility] EXAMINATION 2017-03-24 15:02 RIGHT UPPER QUADRANT PAIN [facility] 2017-03-24 15:[address]ASTR[address] PA[address] [facility] 2017-03-24 15:02 ENCOUNTER FOR THERAPEUTIC DRUG [facility] LEVEL MONITORING 2017-03-24 15:02 OTHER WRAPPER HAND (CURRENT) DRUG [facility] THERAPY 2017-04-13 07:57 CALCULUS OF KIDNEY [facility] 2017-04-13 07:57 CONGENITAL SINGLE RENAL CYST [facility] 2017-04-14 07:52 CALCULUS OF KIDNEY [facility] 2017-07-09 23:31 BIPOLAR DISORDER, UNSPECIFIED [facility] 2017-07-09 23:31 PAIN IN UNSPECIFIED JOINT [facility] 2017-07-09 23:31 ENCOUNTER FOR THERAPEUTIC DRUG [facility] LEVEL MONITORING 2017-07-09 23:31 COUNSELING, UNSPECIFIED [facility] 2017-07-09 23:31 OTHER WRAPPER HAND (CURRENT) DRUG [facility] THERAPY 2017-07-22 07:50 PAIN IN UNSPECIFIED JOINT [facility] 2017-07-22 07:[address] [facility] 2017-07-22 07:50 ENCOUNTER FOR THERAPEUTIC DRUG [facility] LEVEL MONITORING 2017-07-22 07:50 OTHER PENITENTIARY (CURRENT) DRUG [facility] THERAPY 2017-07-23 07:41 TESTICULAR HYPOFUNCTION [facility] 2017-07-23 07:[address] [facility] 2017-07-24 08:00 PAIN IN UNSPECIFIED JOINT [facility] 2017-07-28 10:40 ESSENTIAL (PRIMARY) HYPERTENSION 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 2017-12-13 11:08 ACUTE MAXILLARY SINUSITIS, [facility] UNSPECIFIED 2017-12-13 11:08 NASAL CONGESTION [facility] 2018-04-21 10:31 ESSENTIAL (PRIMARY) HYPERTENSION [facility] 2018-04-21 10:31 SCIATICA, LEFT SIDE [facility] 2018-04-21 10:31 PAIN IN LEFT LEG [facility] 2018-05-25 12:39 CALCULUS OF KIDNEY [facility] 2018-05-25 12:39 CONGENITAL MULTIPLE RENAL CYSTS [facility] 2018-08-19 06:59 ESSENTIAL (PRIMARY) HYPERTENSION [facility] 2018-08-19 06:59 LUMBAGO WITH SCIATICA, LEFT SIDE [facility] 2018-08-19 06:59 LOW BACK PAIN [facility] 2019-01-13 06:13 ESSENTIAL (PRIMARY) HYPERTENSION [facility] 2019-01-13 06:13 ACUTE GINGIVITIS, NON-PLAQUE [facility] INDUCED 2019-01-13 06:13 OTHER FORMS OF STOMATITIS [facility] 2019-01-13 06:13 OTHER LESIONS OF ORAL MUCOSA [facility] 2019-02-22 14:14 ESSENTIAL (PRIMARY) HYPERTENSION [facility] 2019-02-22 14:14 LOW BACK PAIN [facility] 2019-02-22 14:14 DORSALGIA, UNSPECIFIED [facility] 2019-05-17 14:46 ESSENTIAL (PRIMARY) HYPERTENSION [facility] 2019-05-17 14:46 OTHER FORMS OF DYSPNEA [facility] 2019-05-17 14:46 OTHER CHEST PAIN [facility] 2019-05-17 14:46 FAMILY HX OF ISCHEM HEART DIS AND [facility] OTH DIS OF THE CIRC SYS 2019-05-17 16:23 ESSENTIAL (PRIMARY) HYPERTENSION [facility] 2019-05-17 16:23 OTHER FORMS OF ANGINA PECTORIS [facility] 2019-05-17 16:23 CHEST PAIN, UNSPECIFIED [facility] 2019-12-15 07:28 ESSENTIAL (PRIMARY) HYPERTENSION [facility] 2019-12-15 07:[address] [facility] INTESTINAL DISORDERS 2019-12-15 07:28 HEMORRHAGE OF ANUS AND RECTUM [facility] 2019-12-15 07:[address] [facility] 2019-12-15 07:28 FAMILY [facility] NE[facility] DIGESTIVE ORGANS 2020-03-06 07:46 VIRAL INFECTION, UNSPECIFIED [facility] 2020-03-06 07:46 ENCOUNTER FOR ANTIBODY RESPONSE [facility] EXAMINATION 2020-04-12 15:08 OBESITY, UNSPECIFIED [facility] 2020-04-12 15:08 OBSTRUCTIVE SLEEP APNEA (ADULT) Merged with [facility] (PEDIATRIC) 2020-04-12 15:08 BODY MASS INDEX [BMI] 32.0-32.9, [facility] ADULT Allergies date description facility [facility] NSAIDS (Non-Steroidal Anti-Inflamma Is [facility] acetaminophen [facility] hydrocodone [facility] CL[facility]CIN [facility] CODEINE [facility]CLINE [facility]OCODONE [facility] PHENYTOIN [facility] SULFAMETHOXAZOLE W/TRIMETHOPRIM [facility] (CO-TRIMOXAZOLE) [facility]YCIN [facility] IODINATED DIAGNOSTIC AGENTS [facility] NO KNOWN ENVIRONMENTAL ALLERGIES [facility] SULFA ANTIBIOTICS [facility] ACETAMINOPHEN [facility] ADHESIVE TAPE [facility] HYDROCODONE BITARTRATE [facility] MORPHINE [facility] SE[facility]AMIBI [facility] SUTURE [facility] PENICILLINS [facility] NO KNOWN ALLERGIES [facility] IODINE [facility] ASPIRIN [facility] ALMOND [facility] NORTRIPTYLINE [facility] BEE VENOM PROTEIN (HONEY BEE) [facility] NORGESTREL-ETHINYL ESTRADIOL [facility] NO KNOWN ENVIRONMENTAL ALLERGIES [facility] NO KNOWN ALLERGIES [facility] HYDROCODONE [facility] doxycycline [facility] DOXYCYCLINE [facility] OXYCODONE [facility] SESTAMIBI [facility] SULFA (SULFONAMIDE ANTIBIOTICS) [facility] NO KNOWN ALLERGIES [facility] PREGABALIN [facility] CODEINE [facility] BENZOYL PEROXIDE [facility] AMLODIPINE [facility] VERAPAMIL [facility] NO ALLERGY INFORMATION AVAILABLE [facility] [place] AMITRIPTYLINE HCL [facility] MORPHINE [facility] FENTANYL [facility] TOPIRAMATE [facility] NO KNOWN ENVIRONMENTAL ALLERGIES [facility] PENICILLINS [facility] NO KNOWN ALLERGIES [facility] ASPIRIN [facility] NORTRIPTYLINE [facility] PEANUT [facility] BEE VENOM PROTEIN (HONEY BEE) [facility] PNEUMOCOCCAL VACCINE [facility] NSAIDS (Non-Steroidal Anti-Inflamma [facility] [place] hydrocodone [facility] strawberry [facility] Medications date description facility 2020-03-25 00:00:00 Ondansetron 4 MG Disintegrating Tablet [facility] 2020-03-25 00:00:00 Metoclopramide 10 MG Oral Tablet [facility] 2020-03-25 00:00:00 Ketorolac Tromethamine 10 MG Oral Tabl et [facility] Procedures date description facility 2020-03-24 00:00:00 [facility] date description facility 2020-03-25 00:00:00 [facility] date description facility 2020-03-25 00:00:00 [facility] Results Social History date description facility [id number]
== END 2020-06-19 16:36 | disposition home or self-care (01) ==
LOC: SC 16:35
PROVIDERS: ATTEND Nurse Practitioner Family
DX: G47.33 Obstructive sleep apnea (adult) (pediatric) (principal); E66.9 Obesity, unspecified; Z68.33 Body mass index [BMI] 33.0-33.9, adult
CPT/HCPCS: 99213; G0463; 99212

== ENCOUNTER 2021-04-09 11:23 | Outpatient (CLI) | payer MEDICARE, OTHER | END 2021-04-09 23:59 | LOC: LAB.N 11:23 | PROVIDERS: ATTEND Family Medicine | DX: R09.81 Nasal congestion (principal); Z20.822 Contact with and (suspected) exposure to COVID-19 ==

== ENCOUNTER 2021-06-21 15:52 | Outpatient (CLI) | payer MEDICARE, OTHER ==
[2021-06-21 16:43] VITALS: BP 126/81
--- NOTE | 2021-06-21 16:43 | SLEEP CARE CONSULTATION ---
Information from patient questionnaire entered by Janette Diamond MA. I have reviewed and concur with the information entered by Janette Diamond MA. This document represents the service I personally performed and the decisions made by , Beth Jean Baptiste ARNP. History of Present Illness Service Date and Time: 06/21/2021 1552 Previous diagnosis: Mild, Obstructive Sleep Apnea-Hypopnea Syndrome AHI: 5.2 Reason for follow up: annual (last seen 06/2020) Equipment type: CPAP Equipment obtained from: Other ([facility]; getting supplies as needed) Mask style: Full face Mask brand: Respironics Backup mask available: Yes (extra mask) Last cushion change: 2 weeks ago Prior sleep studies: Yes Year and Where: 2013 [facility] Type of Sleep Study: Polysomnography HPI additional information: BELLA RICHARD was diagnosed to have mild, AHI 5.2, obstructive sleep apnea- hypopnea syndrome and returned today for CPAP therapy annual follow-up. Sleep Study - Results Type of Sleep Study: Polysomnography Prior sleep studies: Yes Year and Where: 2013 [facility] CPAP Compliance Data - Data Reviewed with Patient Average duration of nightly device use: 5 hours 50 minutes Compliance rate %: 80 Current pressure setting (cmH2O): 4-6 Average residual AHI: 0.3 Central apnea: 0 Obstructive apnea: 0 Average large leak: 14.5 Subjective Missed days of use due to: reports: family emergency ( HAS CANCER, FAMILY EMERG. ), other (POWER OUTAGE, SECOND HEART ATTACK IN AUGUST 2020,) Patient concerns: reports: aerophagia (last throughout the day). denies: mask discomfort, air blowing in eyes, mask leak noise, condensation in mask/hose, nasal congestion, dry mouth, nose, throat, epistaxis Observed to snore while using device: Yes Current pressure setting perceived as: comfortable On therapy, patient: reports: sleeping better, awakening more refreshed, being more awake and alert during the day, more rested overall. denies: drowsiness while driving Initial [place] Sleepiness Scale score: 18 (in 2019) Current [place] Sleepiness Scale score: 15 (N 2021) Allergies and Home Medications Known drug allergies: No (NO NSAIPS) Drug allergies reviewed: Yes Home medication list reviewed: Yes (Isosorbide mononitrate ) Review of Systems Review of systems same as previous: No ([place] Aug 03, 2020) Physical Exam Vital signs obtained and entered by: SHAKEEL CENTENO Blood Pressure: 126/81 (LEFT, PULSE 92 ) Heart Rate: 82 O2 Saturation: 97 (WITH A CLOTH MASK AND PAPER MASK) Height: 6 ft 2 in Weight: 260 lb (WITH CLOTHES) Weight change since last visit: 1 lb gain Body Mass Index: 33.3 BMI Classification: Obese Impression and Plan 1. Obstructive Sleep Apnea-Hypopnea Syndrome, mild, with good treatment compliance and excellent apnea control. On CPAP therapy, the patient has better sleep quality and is more rested overall. He states his as told him he is snoring more and also moving his arms during sleep. To resolve snore, the CPAP pressure will be changed to 5-7 cmH20. Patient advised to contact this office if pressure change uncomfortable or if pressure change does not resolve snore. Patient's apnea severity and rationale for treatment to reduce apnea, improve sleep quality and reduce cardiovascular and cerebrovascular events was reviewed. I also reviewed the benefit of consistent device use of CPAP for hypertension, cardiac disease (CHF, [place]), depression and mood disorder (PTSD/Bipolar). Patient states he lost a lot of weight but due to stress at home from his own [place] earlier this year and his 's diagnosis with breast cancer, subsequent surgery, has been very hard. He was encouraged to take care of himself and continue to try to lose weight. * Change auto CPAP pressure at 5-7 cmH2O * Notify me if snoring with mask or feeling that the pressure is too much or too little * Attempt to lose weight * Call this office if any problems using CPAP * Return for follow up in 1 year, or sooner if concerns arise Counseling Topics: Spare mask, Weight loss health impact Visit Type: In Office Time Spent with Patient (minutes): 20 Provider Statement: I spent 100% of the Face to Face Visit with the patient with greater than 50% spent counseling the patient and coordination of care.
== END 2021-06-21 15:53 | disposition home or self-care (01) ==
LOC: SC 15:52
PROVIDERS: ATTEND Nurse Practitioner Family
DX: G47.33 Obstructive sleep apnea (adult) (pediatric) (principal); E66.9 Obesity, unspecified; Z68.33 Body mass index [BMI] 33.0-33.9, adult
CPT/HCPCS: 99213; G0463; 99212

== ENCOUNTER 2021-10-10 08:25 | Emergency (ER) | payer MEDICARE, OTHER ==
--- NOTE | 2021-10-10 08:45 | ED Physician Documentation ---
PD HPI HEADACHE - Stated complaint Stated Complaint: HEAD PX - Chief complaint Chief Complaint: Neuro - History obtained from History obtained from: Patient - Additional information Additional information: 46-year-old gentleman with history of hypertension developed a sudden onset headache 2 weeks ago while doing light work, specifically painting, around the house. Pain has been fairly persistent since, seems to be worse in the morning and with upright positioning. 2 weeks prior to starting he did have a head injury but no headache for 2 weeks after the head injury. No history of primary headache syndrome, no migraines. Light does bother him and he is slightly nauseous. Declines pain medication on initial evaluation. No associated neck stiffness or fevers. Review of Systems Ten Systems: 10 systems reviewed and negative Constitutional: denies: Fever, Chills Nose: reports: Rhinorrhea / runny nose (At the outset, gone) Cardiac: reports: Reviewed and negative Respiratory: reports: Reviewed and negative GI: reports: Nausea. denies: Vomiting PD PAST MEDICAL HISTORY - Past Medical History Cardiovascular: Hypertension Respiratory: None Endocrine/Autoimmune: None GI: None : Kidney stones HEENT: None Psych: None, Post traumatic stress disorder Musculoskeletal: Osteoarthritis, Fibromyalgia Derm: None - Past Surgical History Past Surgical History: Yes General: Colonoscopy Ortho: Shoulder arthroplasty, Arthroscopic surgery, Spine surgery - Present Medications Home Medications: Ambulatory Orders Medication Instructions Recorded Confirmed Telmisartan/Hydrochlorothiazid 1 tab ORAL DAILY 12/13/17 [Micardis Hct 80-25 mg Tablet] Testoterone Injections 0.5 ml ORAL 12/13/17 Nitroglycerin 0.4 mg SL ONCE PRN #1 bottle 05/17/19 12/15/19 buprenorphine HCL [Buprenorphine 8 mg PO TID 05/17/19 05/17/19 HCl] Isosorbide Mononitrate ER [Imdur] 60 mg PO DAILY 12/15/19 12/15/19 Metoclopramide [Reglan] 10 mg PO Q6H PRN #10 tablet 10/10/21 - Allergies Allergies/Adverse Reactions: Allergies Allergy/AdvReac Type Severity Reaction Status Date / Time strawberry [[place]] Allergy Intermediate unk Verified 10/10/21 08:35 hydrocodone Allergy Unknown Verified 10/10/21 08:35 NSAIDS (Non-Steroidal AdvReac Unknown Verified 10/10/21 08:35 Anti-Inflamma - Social History Does the pt smoke?: No Smoking Status: Never smoker Does the pt drink ETOH?: No Does the pt have substance abuse?: Yes - Immunizations Immunizations are current?: Yes - POLST Patient has POLST: No PD ED PE NORMAL - Vitals Vital signs reviewed: Yes - General General: Alert and oriented X 3, Other (Appears slightly uncomfortable and photophobic) - HEENT HEENT: PERRL, EOMI - Neck Neck: Supple, no meningeal sign, No bony TTP - Cardiac Cardiac: RRR, No murmur - Respiratory Respiratory: No respiratory distress, Clear bilaterally - Abdomen Abdomen: Normal bowel sounds, Soft, Non tender - Back Back: No CVA TTP, No spinal TTP - Derm Derm: Normal color, Warm and dry - Extremities Extremities: No edema, No calf tenderness / cord - Neuro Neuro: Alert and oriented X 3, frame nailer 2-12 intact, No motor deficit, No sensory deficit, Normal speech Eye Opening: Spontaneous Motor: Obeys Commands Verbal: Oriented GCS Score: 15 Results - Vitals Vitals: Vital Signs - 24 hr 10/10/21 10/10/21 08:30 10:02 Temperature 36.5 C Heart Rate 104 H 73 Respiratory 18 16 Rate Blood Pressure 149/89 H 148/79 H O2 Saturation 97 96 Oxygen O2 Source Room air - Labs Labs: Laboratory Tests 10/10/21 10/10/21 08:57 08:57 WBC 6.8 RBC 5.69 Hgb 16.2 Hct 48.9 MCV 85.9 MCH 28.5 MCHC 33.1 RDW 13.3 Plt Count 242 MPV 10.6 Neut # (Auto) 4.4 Lymph # (Auto) 1.4 [place] # (Auto) 0.6 Eos # (Auto) 0.3 Baso # (Auto) 0.1 Absolute Nucleated RBC 0.00 Nucleated RBC % 0.0 Sodium 136 Potassium 4.2 Chloride 100 L Carbon Dioxide 28 Anion Gap 8.0 BUN 17 Creatinine 1.1 Estimated GFR (MDRD) 72 L Glucose 115 H Calcium 9.2 PD MEDICAL DECISION MAKING - ED course ED course: 46-year-old gentleman presents with sudden on set headache lasting 2 weeks. There are some migrainous factors to it such as light sensitivity and nausea. There is no neck stiffness or fever. CT angiography was done without evidence of blood or subarachnoid hemorrhage nor aneurysm. Given the time course I have no suspicion for meningitis. Also lack of neck stiffness. Departure - Departure Disposition: 01 Home, Self Care Clinical Impression: Headache Qualifiers: Headache type: unspecified Headache chronicity pattern: acute headache Intractability: not intractable Qualified Code(s): R51.9 - Headache, unspecified Condition: Good Record reviewed to determine appropriate education?: Yes Instructions: ED Cephalgia Unspecified Prescriptions: Metoclopramide [Reglan] 10 mg PO Q6H PRN #10 tablet PRN Reason: nausea or headache Comments: Cause of your headache is not completely clear but we know there are no blood clots or aneurysms. Return for new or worsening symptoms. Follow-up with your primary care physician, next available appointment. I sent a prescription for medication to try for the headache once you are not driving for the day to [place] in [place]. Forms: Activity restrictions
[2021-10-10 09:04] LABS: BASOPHILS # (AUTO) 0.1 10^3/uL (0.0-0.1); BASOPHILS % (AUTO) 0.9 %; EOSINOPHILS # (AUTO) 0.3 10^3/uL (0.0-0.7); HCT - HEMATOCRIT 48.9 % (42.0-52.0); HGB - HEMOGLOBIN 16.2 g/dL (14.0-18.0); LYMPHOCYTES # (AUTO) 1.4 10^3/uL (1.5-3.5); LYMPHOCYTES % (AUTO) 20.4 %; MEAN CORPUSCULAR HEMOGLOBIN 28.5 pg (27.0-31.0); MEAN CORPUSCULAR HGB CONC 33.1 g/dL (32.0-36.0); MEAN CORPUSCULAR VOLUME 85.9 fL (80.0-94.0); MEAN PLATELET VOLUME 10.6 fL (7.4-11.4); MONOCYTES # (AUTO) 0.6 10^3/uL (0.0-1.0); MONOCYTES % (AUTO) 9.5 %; NEUTROPHILS # (AUTO) 4.4 10^3/uL (1.5-6.6); NEUTROPHILS % (AUTO) 64.9 %; PLT - PLATELET COUNT 242 10^3/uL (130-450); RED BLOOD COUNT 5.69 10^6/uL (4.70-6.10); RED CELL DISTRIBUTION WIDTH 13.3 % (12.0-15.0); WHITE BLOOD COUNT 6.8 x10^3/uL (4.8-10.8)
[2021-10-10] MEDS ORDERED: SUMAtriptan 6 MG/0.5 ML VIAL SUBQ STA (09:10)
[2021-10-10 09:12] LABS: CALCIUM 9.2 mg/dL (8.5-10.3); CREATININE 1.1 mg/dL (0.6-1.2); POTASSIUM 4.2 mmol/L (3.5-5.0)
[2021-10-10] MEDS ORDERED: IOPAMIDOL-300 100 ML VIAL ONE (09:30)
--- NOTE | 2021-10-10 09:58 | CT Report ---
PROCEDURE: ANGIO HEAD W/WO INDICATIONS: WHOL CONTRAST: IV CONTRAST: Isovue 300 ml: 80 PO CONTRAST: *NO PO CONTRAST TECHNIQUE: Precontrast 4.5 mm thick angled axial sections acquired from the foramen magnum to the vertex. Afte r the administration of intravenous contrast, 1 mm thick sections acquired through the [place] of [place] is. Postcontrast 4.5 mm thick sections then re-acquired from the foramen magnum to the vertex. 3-di mensional eddvwen-lahvpqqgo-yevbfaplld (MIP) and/or volume rendering reformats were acquired of the c entral intracranial vasculature. For radiation dose reduction, the following was used: automated ex posure control, adjustment of mA and/or kV according to patient size. COMPARISON: None FINDINGS: Image quality: Excellent. Anterior circulation: Intracranial internal carotid arteries are normal in size and flow. The flow within the paired anterior cerebral arteries is normal and symmetric. The flow within the middle cer ebral arteries is normal and symmetric. The anterior communicating artery is seen. No aneurysms are seen. Posterior circulation: Visualized portions of the vertebral arteries demonstrate normal caliber, and join to form a normal appearing basilar artery. Flow within the posterior cerebral arteries is norm al and symmetric. No aneurysms are seen. CSF spaces: Ventricles are normal in size and shape. Basal cisterns are patent. No extra-axial flu id collections. Brain: No midline shift. No intracranial bleeds or masses. Santo-white matter interface appears int act. Skull and face: Calvarium and facial bones appear intact, without suspicious lesions. Sinuses: Visualized sinuses and mastoids are clear. IMPRESSION: 1. No evidence acute stroke, hemorrhage, or mass. No evidence of acute intracranial process. 2. Unremarkable CTA head. No stenosis, aneurysm, vascular cutoff, or focal filling defect. Reviewed by: Armin Parish MD on 10/10/2021 9:57 AM PDT Approved by: Armin Parish MD on 10/10/2021 9:57 AM PDT Station ID: [id number]
[2021-10-10 10:03] VITALS: BP 148/79
[2021-10-10] MEDS ORDERED: IOPAMIDOL-300 100 ML VIAL IVP ONE (12:04)
== END 2021-10-10 10:15 | disposition home or self-care (01) ==
LOC: ED 08:25
DX: R51.9 Headache, unspecified (principal)
CPT/HCPCS: 36415; 70496; 80048; 85025; 96372; 99283; 99284; Q9967

== ENCOUNTER 2022-02-27 07:02 | Outpatient (CLI) | payer MEDICARE, OTHER ==
--- NOTE | 2022-02-28 14:10 | Ultrasound Report ---
PROCEDURE: Abdomen Limited INDICATIONS: RUQ PAIN WITH FATTY LIVER TECHNIQUE: Real-time focused scanning was performed of the abdomen, with image documentation. COMPARISON: CT abdomen and pelvis with, 04/14/2017. CT IVP, 04/25/2018. FINDINGS: Liver is normal in size measuring 15.6 cm in length. Diffuse increased hepatic echotexture is seen, compatible with hepatic fatty infiltration. Gallbladder is normal. No gallstones, call bladder wall thickening, pericholecystic fluid collection or sonographic Gonzalez's sign. Common bile duct is normal in caliber measuring 6.2 mm. Pancreas is obscured by overlying bowel gas. Right kidney is normal without hydronephrosis. IMPRESSION: 1. Diffusely increased hepatic echotexture compatible with hepatic fatty infiltration. Other hepatoce llular disease could have a similar sonographic appearance. Recommend correlation with liver function tests. 2. Normal gallbladder. No gallstones or ultrasound finding to suggest acute cholecystitis. Reviewed by: Clair Kaiser MD on 02/28/2022 2:08 PM PDT Approved by: Clair Kaiser MD on 02/28/2022 2:08 PM PDT Station ID: [id number]
== END 2022-02-27 07:03 | disposition home or self-care (01) ==
LOC: DI 07:02
PROVIDERS: ATTEND Student in an Organized Health Care Education/Training Program
DX: K76.0 Fatty (change of) liver, not elsewhere classified (principal); R10.11 Right upper quadrant pain

== ENCOUNTER 2022-07-08 15:30 | Outpatient (CLI) | payer MEDICARE, OTHER ==
[2022-07-08 15:58] VITALS: BP 138/98
--- NOTE | 2022-07-08 15:58 | SLEEP CARE CONSULTATION ---
Information from patient questionnaire entered by Sheri Shah. I have reviewed and concur with the information entered by Sheri Shah. This document represents the service I personally performed and the decisions made by me, Beth Jean Baptiste ARNP. History of Present Illness Service Date and Time: 07/08/2022 1530 Previous diagnosis: Mild, Obstructive Sleep Apnea-Hypopnea Syndrome AHI: 5.2 Reason for follow up: annual (LAST SEEN 07/2020) Equipment type: CPAP (RESMED Airsense 10; s/u 05/2020) Equipment obtained from: Other ([facility]; getting supplies as needed) Mask style: Full face Backup mask available: Yes (old mask) Last cushion change: 3 weeks ago Prior sleep studies: Yes Year and Where: 2013 [facility] Type of Sleep Study: Polysomnography HPI additional information: BELLA RICHARD was diagnosed to have mild, AHI 5.2, obstructive sleep apnea- hypopnea syndrome and returned today for CPAP therapy annual follow-up. Sleep Study - Results Type of Sleep Study: Polysomnography Prior sleep studies: Yes Year and Where: 2013 [facility] CPAP Compliance Data - Data Reviewed with Patient Average duration of nightly device use: 5 hours 22 minutes Compliance rate %: 67 (150/180 days used) Current pressure setting (cmH2O): 5-7 Average residual AHI: 0.5 Central apnea: 0.0 Obstructive apnea: 0.0 Average large leak: 5.2 lpm Subjective Missed days of use due to: reports: other ( has cancer; has to go to frequent visits/treatments with her when he cannot use his CPAP) Patient concerns: reports: aerophagia (has "bad gas" first hour in morning), condensation in mask/hose (has increased heated hose). denies: mask discomfort, air blowing in eyes, mask leak noise, nasal congestion, dry mouth, nose, throat, epistaxis Observed to snore while using device: Yes Current pressure setting perceived as: comfortable On therapy, patient: reports: sleeping better, awakening more refreshed, being more awake and alert during the day, more rested overall. denies: drowsiness while driving Initial [place] Sleepiness Scale score: 18 (in 2019) Current [place] Sleepiness Scale score: 13 (07/08/22) Allergies and Home Medications Drug allergies reviewed: Yes (as listed EMR) Home medication list reviewed: Yes (no changes) Review of Systems Review of systems same as previous: Yes (no changes) Physical Exam Vital signs obtained and entered by: SHERI Esqueda MA Blood Pressure: 138/98 (LEFT ARM) Cuff size: regular Heart Rate: 81 O2 Saturation: 97 Height: 6 ft 3 in Weight: 262 lb 3.2 oz Body Mass Index: 32.8 BMI Classification: Obese Impression and Plan 1. Obstructive Sleep Apnea-Hypopnea Syndrome, mild, with fair treatment compliance and good apnea control. On CPAP therapy, the patient has better sleep quality and is more rested overall. Patient states his compliance is affected by him being away from home to take care of his who has cancer. He is often in hospitals and other places that he cannot use his CPAP. He tries to use it as much as possible when at home. He states his has told him he still snores when using the CPAP and he had a recording of his snoring. His residual AHI is 0.5 on his therapy report for last 90 days. He is also complaining of having gas/bloating feeling in the mornings. We discussed that the aerophagia can be due to his pressure being too high. The last time he was here we increased his pressure to 5-7 cmH2O for snoring. He states the current pressure is very comfortable and he would like to continue this despite the bloating. He states it is not that bad. His also recorded him moving hands and "fiddling" with the mask when asleep. He states it does not wake him up or bother him but does d isturb his at night. I advised him to try a 5 mg dose of melatonin nightly to try to reduce nightly movements. He voiced understanding. Patient's apnea severity and rationale for treatment to reduce apnea, improve sleep quality and reduce cardiovascular and cerebrovascular events was reviewed. I also reviewed the benefit of consistent device use of CPAP for hypertension, cardiac disease (CHF, [place]), depression and mood disorder (PTSD, Bipolar). 2. Obesity, unspecified. Currently patients BMI is 32.8. Obesity increases the risk of apnea, CPAP pressure requirements and overall health risks especially cardiovascular and diabetes. Thus patient is advised to lose weight. * Continue auto CPAP pressure at 5-7 cmH2O * Try OTC 5 mg melatonin nightly to reduce arm movements during sleep. * Update supplies * Notify me if snoring with mask or feeling that the pressure is too much or too little * Attempt to lose weight * Call this office if any problems using CPAP * Return for follow up in 1 year, or sooner if concerns arise Counseling Topics: Spare mask, Weight loss health impact Visit Type: In Office Time Spent with Patient (minutes): 22 Provider Statement: I spent 100% of the Face to Face Visit with the patient with greater than 50% spent counseling the patient and coordination of care.
== END 2022-07-08 15:31 | disposition home or self-care (01) ==
LOC: SC 15:30
PROVIDERS: ATTEND Nurse Practitioner Family
DX: G47.33 Obstructive sleep apnea (adult) (pediatric) (principal); E66.9 Obesity, unspecified; Z68.32 Body mass index [BMI] 32.0-32.9, adult
CPT/HCPCS: 99213; G0463; 99212

== ENCOUNTER 2023-01-02 14:43 | Outpatient (CLI) | payer MEDICARE, OTHER ==
--- NOTE | 2023-01-02 15:08 | XRAY Report ---
PROCEDURE: Cervical Spine 2 View INDICATIONS: CERVICAL RADICULOPATHY TECHNIQUE: 3 view(s) of the cervical spine were acquired. COMPARISON: None. FINDINGS: Bones: No fractures or dislocations to the C6 level. No acute fractures. No significant degenerative changes. Straightening of normal cervical lordosis, may be positional or related to muscle spasm. No suspicious bony lesions. Soft tissues: No prevertebral soft tissue swelling. IMPRESSION: No significant degenerative changes of the cervical spine. No acute fractures. Reviewed by: Juan Ramon Awad MD on 01/02/2023 3:07 PM PDT Approved by: Juan Ramon Awad MD on 01/02/2023 3:07 PM PDT Station ID: [id number]
== END 2023-01-02 14:44 | disposition home or self-care (01) ==
LOC: DI 14:43
PROVIDERS: ATTEND Family Medicine
DX: M50.10 Cervical disc disorder with radiculopathy, unspecified cervical region (principal)

== ENCOUNTER 2023-03-28 06:59 | Outpatient (CLI) | payer MEDICARE, OTHER ==
--- NOTE | 2023-03-28 10:18 | Ultrasound Report ---
PROCEDURE: Abdomen Limited INDICATIONS: RIGHT UPPER QUADRANT PAIN TECHNIQUE: Real-time focused scanning was performed of the abdomen, with image documentation. COMPARISONS: CT abdomen pelvis 04/14/2017, ultrasound abdomen 02/28/2022. FINDINGS: Liver: Liver measures 16.4 cm with steatosis. Gallbladder: Unremarkable. Biliary ducts: Intrahepatic bile ducts are non-dilated. Extrahepatic bile duct caliber measures 4 m m. Normal is 6-7 mm or less in diameter, or 10 mm or less post-cholecystectomy. Pancreas: Visualized portions of the pancreas demonstrate mild increased echogenicity. Right kidney: Normal in size and echotexture. Right kidney measures 11.3 cm long. No hydronephrosis or nephrolithiasis. No solid masses. No complex renal cystic lesions which require follow-up. Simple right renal cyst. Aorta: Visualized aorta is normal in caliber at less than 3 cm. IVC: Intrahepatic inferior vena cava is patent. Miscellaneous: No free abdominal fluid. IMPRESSION: Mild increased echogenicity of the pancreas which can be seen with inflammation, acute or chronic. Re commend correlation to patient's symptoms. Reviewed by: Ivonne Mike MD on 03/28/2023 10:16 AM PDT Approved by: Ivonne Mike MD on 03/28/2023 10:16 AM PDT Station ID: [id number]
== END 2023-03-28 07:00 | disposition home or self-care (01) ==
LOC: DI 06:59
PROVIDERS: ATTEND Nurse Practitioner Family
DX: R10.11 Right upper quadrant pain (principal); K76.0 Fatty (change of) liver, not elsewhere classified

== ENCOUNTER 2023-07-07 14:26 | Outpatient (CLI) | payer MEDICARE, OTHER ==
--- NOTE | 2023-07-07 15:05 | Sleep Patient Instructions ---
Sleep Center Visit Summary - Patient Visit Information Reason for Visit: Annual Visit - Patient Instructions Additional Instructions: You will continue with CPAP therapy with pressure changed to 4-6 cmH2O. A supply prescription will be updated with your DME. We are going to do another sleep study to verify diagnosis and severity of sleep apnea since you have had significant weight loss and it has been 10 years since your last sleep study We encourage you to continue to try to lose weight. Please follow up with the sleep care office after sleep study. - Clinic Information Contact: [facility] [address] [place] [id number] [email or web address] T: [phone]
--- NOTE | 2023-07-07 15:12 | SLEEP CARE CONSULTATION ---
Information from patient questionnaire entered by Sheri Shah. I have reviewed and concur with the information entered by Sheri Shah. This document represents the service I personally performed and the decisions made by me, Beth Jean Baptiste ARNP. History of Present Illness Service Date and Time: 07/07/2023 1426 Previous diagnosis: Mild, Obstructive Sleep Apnea-Hypopnea Syndrome AHI: 5.2 Reason for follow up: annual (LAST SEEN 06/2022) Equipment type: CPAP (RESMED Airsense 10; s/u 05/2020) Equipment obtained from: Other ([facility]; getting supplies as needed) Mask style: Full face Mask brand: Respironics (medium cushion) Backup mask available: Yes Last cushion change: 2 weeks ago Prior sleep studies: Yes Year and Where: 2013 [facility] Type of Sleep Study: Polysomnography HPI additional information: BELLA RICHARD was diagnosed to have mild, AHI 5.2, obstructive sleep apnea- hypopnea syndrome and returned today for CPAP therapy annual follow-up. Sleep Study - Results Type of Sleep Study: Polysomnography Prior sleep studies: Yes Year and Where: 2013 [facility] CPAP Compliance Data - Data Reviewed with Patient Average duration of nightly device use: 4 HRS 50 MINS Compliance rate %: 59 (07/03/22-07/02/23; 306/365 days used; 70% in last 30 days) Current pressure setting (cmH2O): 5-7 Average residual AHI: 0.6 Central apnea: 0.1 Obstructive apnea: 0.1 Average large leak: 3.2 L/min Subjective Missed days of use due to: reports: illness (in hospital), other (moved, other medical issues; work) Patient concerns: reports: aerophagia (very gassy for 1st hour of morning. ). denies: mask discomfort, air blowing in eyes, mask leak noise, condensation in mask/hose, nasal congestion, dry mouth, nose, throat, epistaxis Observed to snore while using device: Yes (sometimes, improved since he lost weight and started asthma meds) Current pressure setting perceived as: comfortable On therapy, patient: reports: sleeping better, awakening more refreshed, being more awake and alert during the day, more rested overall. denies: drowsiness while driving Initial [place] Sleepiness Scale score: 18 (in 2019) Current [place] Sleepiness Scale score: 4 (07/07/23) Allergies and Home Medications Known drug allergies: Yes (as listed) Drug allergies reviewed: Yes Home medication list reviewed: Yes (Fluticasone propionate and Salmeterol) Allergy and home medication list: Allergies strawberry [[place]] Allergy (Intermediate, Verified 07/03/23 11:52) unk hydrocodone Allergy (Verified 07/03/23 11:52) Unknown NSAIDS (Non-Steroidal Anti-Inflamma Adverse Reaction (Verified 07/03/23 11:52) Unknown Review of Systems Review of systems same as previous: No (asthma, pancreas atrophy, basal scarring and atelectasis) Physical Exam Vital signs obtained and entered by: SHERI Esqueda MA Blood Pressure: 122/83 (LEFT ARM) Cuff size: regular Heart Rate: 76 O2 Saturation: 98 Height: 6 ft 3 in Weight: 240 lb Weight change since last visit: 26 lb loss Body Mass Index: 29.9 BMI Classification: Overweight Impression and Plan 1. Obstructive Sleep Apnea-Hypopnea Syndrome, mild, with good treatment compliance and good apnea control. On CPAP therapy, the patient has better sleep quality and is more rested overall. To reduce symptoms of aerophagia, the CPAP pressure will be reduced to 4-6 cmH2O. Patient advised to contact me if this does not reduce symptoms or if pressure change uncomfortable. He has also had significant weight loss, about 30 pounds. His last sleep study was in 2013. I think it would be good to have him repeat a sleep study to re-verify diagnosis and severity. He voiced understanding and agreement. Patient's apnea severity and rationale for treatment to reduce apnea, improve sleep quality and reduce cardiovascular and cerebrovascular events was reviewed. I also reviewed the benefit of consistent device use of CPAP for hypertension, cardiac disease (CHF, [place]), depression and mood disorder (PTSD and bipolar). 2. Overweight, unspecified. Currently patients BMI is 29.9. He has lost weight. Obesity increases the risk of apnea, CPAP pressure requirements and overall health risks especially cardiovascular and diabetes. Thus patient is advised to continue to try to lose weight. * Change auto CPAP pressure to 4-6 cmH2O * PSG/HST * Update supply prescription * Notify me if snoring with mask or feeling that the pressure is too much or too little * Attempt to lose weight * Call this office if any problems using CPAP * Return for follow up after sleep study, or sooner if concerns arise Adjust device pressure to (cmH2O): 4-6 Counseling Topics: Weight loss health impact Prescriptions: Device supplies Plan: PSG/HST Visit Type: In Office Time Spent with Patient (minutes): 25 Provider Statement: I spent 100% of the Face to Face Visit with the patient with greater than 50% spent counseling the patient and coordination of care.
[2023-07-07 15:13] VITALS: BP 122/83; O2SAT 98
== END 2023-07-07 14:27 | disposition home or self-care (01) ==
LOC: SC 14:26
PROVIDERS: ATTEND Nurse Practitioner Family
DX: G47.33 Obstructive sleep apnea (adult) (pediatric) (principal)
CPT/HCPCS: 99213; G0463; 99212

== ENCOUNTER 2023-07-12 19:34 | Outpatient (CLI) | payer MEDICARE, OTHER | END 2023-07-12 19:35 | disposition home or self-care (01) | LOC: SC 19:34 | PROVIDERS: ATTEND Nurse Practitioner Family | DX: G47.33 Obstructive sleep apnea (adult) (pediatric) (principal); I11.9 Hypertensive heart disease without heart failure; F32.A Depression, unspecified | CPT/HCPCS: 95810 ==

== ENCOUNTER 2023-07-23 14:55 | Outpatient (CLI) | payer MEDICARE, OTHER ==
--- NOTE | 2023-07-23 15:14 | Sleep Patient Instructions ---
Sleep Center Visit Summary - Patient Visit Information Reason for Visit: Sleep study follow up - Patient Instructions Additional Instructions: You were here for follow up of a verifying sleep study. You will be continued on CPAP therapy with pressure at 4-6 cmH2O. You should follow up with sleep care in 12 months. You may contact us sooner for any questions or concerns. - Clinic Information Contact: [facility] [address] [place] [address] [email or web address] T: [phone]
--- NOTE | 2023-07-23 15:16 | SLEEP CARE CONSULTATION ---
Information from patient questionnaire entered by Cara Shah. I have reviewed and concur with the information entered by Cara Shah. This document represents the service I personally performed and the decisions made by , Beth Jean Baptiste ARNP. History of Present Illness Service Date and Time: 07/23/2023 145 Initial [place] Sleepiness Scale score: 18 (in 2019) Current [place] Sleepiness Scale score: 5 (07/23/23) Additional HPI information: BELLA RICHARD returns for follow up and results of the recently performed polysomnography. The sleep study showed mild obstructive sleep apnea with an average AHI of 14.9 and katelyn oxygen saturation of 85%. I explained the pathophysiology behind obstructive sleep apnea. I reviewed the impact of weight changes on sleep apnea and strongly recommended losing weight. The patient will continue with the nasal CPAP therapy set at 4-6 cmH20. Patient was cautioned about risks of drowsy driving until sleepiness symptoms resolve. Patient denies drowsy driving. Sleep Study - Results Type of Sleep Study: Polysomnography (COMPLETED 07/12/23) Prior sleep studies: Yes Year and Where: 2013 [facility] Allergies and Home Medications Known drug allergies: Yes (as listed) Drug allergies reviewed: Yes Home medication list reviewed: Yes (no changes) Allergy and home medication list: Allergies strawberry [[place]] Allergy (Intermediate, Verified 07/21/23 16:41) unk hydrocodone Allergy (Verified 07/21/23 16:41) Unknown NSAIDS (Non-Steroidal Anti-Inflamma Adverse Reaction (Verified 07/21/23 16:41) Unknown Review of Systems Review of systems same as previous: Yes (NO CHANGE) Physical Exam Vital signs obtained and entered by: CARA Esqueda MA Blood Pressure: 115/76 (LEFT ARM) Cuff size: regular Heart Rate: 74 O2 Saturation: 98 Height: 6 ft 3 in Weight: 240 lb 3.2 oz Body Mass Index: 30.0 BMI Classification: Obese Impression and Plan 1. Obstructive Sleep Apnea-Hypopnea Syndrome, mild, with lowest oxygen saturation of 85%. Positive pressure therapy could continue to benefit his hypertension, cardiac disease (CHF, [place]), depression and mood disorders (PTSD, Bipolar). As mentioned above, the patient will be continued on nasal autoCPAP therapy with pressure set at 4-6 cmH2O. Compliance guidelines also reviewed. At his last appointment he showed good compliance and control of his sleep apnea. We will followup with him next year. 2. Hypoxemia, mild, with a katelyn oxygen saturation of 85% and 2.5 minutes spent under 90%. The baseline oxygen saturation was normal with an average oxygen saturation of 93%. 2. Obesity, unspecified. Currently patients BMI is 30. Obesity increases the risk of apnea, CPAP pressure requirements and overall health risks especially cardiovascular and diabetes. Thus patient is advised to lose weight. * Continue auto CPAP pressure at 4-6 cmH2O * Notify me if snoring with mask or feeling that the pressure is too much or too little * Attempt to lose weight * Call this office if any problems using CPAP * Return for follow up in 12 months, or sooner if concerns arise Counseling Topics: Weight loss health impact Follow up with Sleep Care in: 1 year Visit Type: In Office Time Spent with Patient (minutes): 11 Provider Statement: I spent 100% of the Face to Face Visit with the patient with greater than 50% spent counseling the patient and coordination of care.
[2023-07-23 15:17] VITALS: BP 115/76; O2SAT 98
== END 2023-07-23 14:56 | disposition home or self-care (01) ==
LOC: SC 14:55
PROVIDERS: ATTEND Nurse Practitioner Family
DX: G47.33 Obstructive sleep apnea (adult) (pediatric) (principal); R09.02 Hypoxemia; E66.9 Obesity, unspecified; Z68.30 Body mass index [BMI] 30.0-30.9, adult
CPT/HCPCS: 99212; G0463